=== PATIENT | male | born 1990 | race Caucasian/White ===

== ENCOUNTER 2016-11-18 10:48 | Inpatient (IN) | payer BC ==
[2016-11-18] MEDS ORDERED: ACETAMINOPHEN TAB 325 MG TAB PO STA (11:09)
--- NOTE | 2016-11-18 11:31 | ED ---
General Adult HPI - General Chief complaint: Fever Stated complaint: chest and back pain Time Seen by Provider: 11/18/16 11:01 Source: patient Mode of arrival: ambulatory Limitations: no limitations - History of Present Illness Initial comments: 46-year-old male presented for evaluation of one week of chest discomfort with sinus congestion, productive cough, shortness of breath, generalized myalgias, and rhinorrhea. He states he symptoms have progressively been worsening and he feels that he has also had a fever during this time although his temperature has been normal. He is a smoker and states that he got his influenza vaccine earlier this year. He denies abdominal pain, nausea, vomiting, lightheadedness, neck rigidity. - Related Data Home Medications Medication Instructions Recorded Confirmed Acetaminophen/Diphenhydramine 2 tab PO HS PRN 11/18/16 11/18/16 [Tylenol PM 500-25mg] Ibuprofen [Advil] 400 mg PO Q6HR PRN 11/18/16 11/18/16 Loratadine [Claritin] 10 mg PO DAILY PRN 11/18/16 11/18/16 Multivitamin [Men's Multi-Vitamin] 1 tab PO DAILY 11/18/16 11/18/16 Vitamin C Chewable 1 tab PO DAILY 11/18/16 11/18/16 guaiFENesin SYRUP 100MG/5ML 400 mg PO BID PRN 11/18/16 11/18/16 [Robitussin] Allergies Allergy/AdvReac Type Severity Reaction Status Date / Time No Known Allergies Allergy Verified 11/18/16 12:49 Review of Systems ROS Statement: Those systems with pertinent positive or pertinent negative responses have been documented in the HPI. ROS Other: All systems not noted in ROS Statement are negative. Constitutional: Reports: fever, chills. Denies: weakness, weight change Eyes: Denies: eye pain, eye discharge ENT: Denies: ear pain, throat pain Respiratory: Reports: cough, dyspnea. Denies: wheezes, hemoptysis, stridor Cardiovascular: Reports: chest pain. Denies: palpitations, dyspnea on exertion , orthopnea Endocrine: Reports: fatigue. Denies: polydipsia, polyuria Gastrointestinal: Denies: abdominal pain, nausea, vomiting, diarrhea, constipation, hematemesis, melena Genitourinary: Denies: urgency, dysuria Musculoskeletal: Reports: myalgia. Denies: back pain Skin: Denies: rash, lesions Neurological: Denies: headache, weakness Psychiatric: Denies: anxiety, depression Past Medical History Past Medical History: Pneumonia History of Any Multi-Drug Resistant Organisms: None Reported Additional Past Surgical History / Comment(s): wisdom teeth, lasix eye surgery Past Psychological History: No Psychological Hx Reported Smoking Status: Current every day smoker Past Alcohol Use History: Occasional Past Drug Use History: None Reported - Past Family History Mother Family Medical History: Coronary Artery Disease (CAD) (Mother is 54-year-old has history of CAD as well as hypothyroidism.), Thyroid Disorder Father Family Medical History: Hyperlipidemia, Hypertension (Father is 66-year-old has history of hypertension hyperlipidemia.) Sister(s) Family Medical History: No Reported History (Patient has one stepsister no major medical problems.) General Exam Limitations: no limitations General appearance: alert, in no apparent distress Head exam: Present: atraumatic, normocephalic, normal inspection Eye exam: Present: normal appearance, PERRL, EOMI. Absent: scleral icterus, conjunctival injection, periorbital swelling ENT exam: Present: normal exam, mucous membranes moist Neck exam: Present: normal inspection. Absent: tenderness, meningismus, lymphadenopathy Respiratory exam: Present: normal lung sounds bilaterally. Absent: respiratory distress, wheezes, rales, rhonchi, stridor Cardiovascular Exam: Present: regular rate, normal rhythm, normal heart sounds. Absent: systolic murmur, diastolic murmur, rubs, gallop, clicks GI/Abdominal exam: Present: soft, normal bowel sounds. Absent: distended, tenderness, guarding, rebound, rigid Rectal exam: Present: deferred Extremities exam: Present: normal inspection, full ROM, normal capillary refill. Absent: tenderness, pedal edema, joint swelling, calf tenderness Back exam: Present: full ROM, tenderness Neurological exam: Present: alert, oriented X3, CN II-XII intact Psychiatric exam: Present: normal affect, normal mood Skin exam: Present: warm, dry, intact, normal color. Absent: rash Course Vital Signs 11/18/16 11/18/16 11/18/16 10:56 11:50 12:16 Temperature 100.8 F H 101.9 F H 98.9 F Pulse Rate 79 80 86 Respiratory 20 16 20 Rate Blood Pressure 107/67 130/70 121/66 O2 Sat by Pulse 99 99 98 Oximetry 11/18/16 11/18/16 11/18/16 13:00 13:25 14:30 Temperature 98.7 F 100.4 F H Pulse Rate 80 85 79 Respiratory 18 18 20 Rate Blood Pressure 118/59 120/58 113/63 O2 Sat by Pulse 97 97 96 Oximetry EKG Findings - EKG Comments: EKG Findings:: EKG shows normal sinus rhythm and is being read as an acute LA/ STEMI in the anterior lateral leads. However there is ST segment abnormalities throughout the EKG that is more indicative of pericarditis. There are no reciprocal changes and there are intermittent DE depressions. Ventricular rate 75, ADAN 126, QRS 72, and QT/QTC 322/359. A second EKG was obtained as there were no previous ones to compare with and this showed findings consistent with the first. Medical Decision Making - Medical Decision Making 26-year-old male presented for evaluation of one week of substernal chest discomfort with sinus congestion, productive cough of brownish colored sputum, shortness of breath, and generalized myalgias. He is a smoker and had his influenza shot this year. On physical examination the patient has clear lung sounds bilaterally, mucous members are moist without erythema or swelling, and heart rate is regular rhythm and rate without murmurs rubs or gallops. Given his HPI concern for pneumonia versus URI is highest on differential although there is a family history of cardiac disease. We'll obtain an EKG, chest x-ray. We'll not obtain influenza swab as he is outside the treatment range for Tamiflu and family agreed with plan to forego swab testing. EKG showing diffuse ST elevation throughout without reciprocal ST depression. There is also intermittent DE depression. Although the EKG is being read as an acute LA/STEMI this appears to be more consistent with a pericarditis. This case was discussed with Dr. Diggs and EKGs were sent over for him to evaluate. He called back and stated that it looked like early repolarization but that he should be treated for pericarditis at this time with 400 mg Motrin TID and to admit for observation and an Echo in the am. Labs were significant for a troponin of 6.76 and a CRP of 137. Dr. Diggs was updated on this troponin value and stated he would come to the bedside immediately to further evaluate the pt as myocarditis and STEMI being considered. Upon discussion with the patient and family it was decided that he would be sent to the [facility] for further evaluation. The patient and his family acknowledged an understanding of all information provided and agreed with this plan of care. He remained stable for the remainder of his stay in the ED until he was transferred up to the label fuser tender. Troponin prior to leaving the department was 16. - Lab Data Result diagrams: 11/18/16 11:50 11/18/16 11:50 Lab Results 11/18/16 11/18/16 11/18/16 Range/Units 11:50 11:50 11:50 WBC 8.2 (3.8-10.6) k/uL RBC 4.68 (4.30-5.90) m/uL Hgb 14.7 (13.0-17.5) gm/dL Hct 41.5 (39.0-53.0) % MCV 88.6 (80.0-100.0) fL MCH 31.3 (25.0-35.0) pg MCHC 35.3 (31.0-37.0) g/dL RDW 12.7 (11.5-15.5) % Plt Count 155 (150-450) k/uL Neutrophils % 79 % Lymphocytes % 10 % Monocytes % 8 % Eosinophils % 1 % Basophils % 1 % Neutrophils # 6.4 (1.3-7.7) k/uL Lymphocytes # 0.8 L (1.0-4.8) k/uL Monocytes # 0.6 (0-1.0) k/uL Eosinophils # 0.1 (0-0.7) k/uL Basophils # 0.0 (0-0.2) k/uL ESR 19 H (0-15) mm/hr Sodium 138 (137-145) mmol/L Potassium 4.4 (3.5-5.1) mmol/L Chloride 101 (98-107) mmol/L Carbon Dioxide 25 (22-30) mmol/L Anion Gap 12 mmol/L BUN 12 (9-20) mg/dL Creatinine 0.90 (0.66-1.25) mg/dL Est GFR (MDRD) Af Amer >60 (>60 ml/min/1.73 sqM) Est GFR (MDRD) Non-Af >60 (>60 ml/min/1.73 sqM) Glucose 115 H (74-99) mg/dL Plasma Lactic Acid Beni 1.0 (0.7-2.0) mmol/L Uric Acid (3.5-8.5) mg/dL Calcium 9.0 (8.4-10.2) mg/dL Total Bilirubin 1.0 (0.2-1.3) mg/dL AST 47 (17-59) U/L ALT 32 (21-72) U/L Alkaline Phosphatase 77 (38-126) U/L Lactate Dehydrogenase (313-618) U/L Troponin I (0.000-0.034) ng/mL C-Reactive Protein 137.0 H (<10.0) mg/L NT-Pro-B Natriuret Pep pg/mL Total Protein 7.0 (6.3-8.2) g/dL Albumin 4.0 (3.5-5.0) g/dL Rheumatoid Factor (<12) IU/mL Hepatitis A IgM Ab Hep Bs Antigen Hep B Core IgM Ab Hep C IgG Ab (Negative) Influenza Type A RNA (Not Detectd) Influenza Type B (PCR) (Not Detectd) 11/18/16 11/18/16 11/18/16 Range/Units 11:50 11:50 11:50 WBC (3.8-10.6) k/uL RBC (4.30-5.90) m/uL Hgb (13.0-17.5) gm/dL Hct (39.0-53.0) % MCV (80.0-100.0) fL MCH (25.0-35.0) pg MCHC (31.0-37.0) g/dL RDW (11.5-15.5) % Plt Count (150-450) k/uL Neutrophils % % Lymphocytes % % Monocytes % % Eosinophils % % Basophils % % Neutrophils # (1.3-7.7) k/uL Lymphocytes # (1.0-4.8) k/uL Monocytes # (0-1.0) k/uL Eosinophils # (0-0.7) k/uL Basophils # (0-0.2) k/uL ESR (0-15) mm/hr Sodium (137-145) mmol/L Potassium (3.5-5.1) mmol/L Chloride (98-107) mmol/L Carbon Dioxide (22-30) mmol/L Anion Gap mmol/L BUN (9-20) mg/dL Creatinine (0.66-1.25) mg/dL Est GFR (MDRD) Af Amer (>60 ml/min/1.73 sqM) Est GFR (MDRD) Non-Af (>60 ml/min/1.73 sqM) Glucose (74-99) mg/dL Plasma Lactic Acid Beni (0.7-2.0) mmol/L Uric Acid 5.0 (3.5-8.5) mg/dL Calcium (8.4-10.2) mg/dL Total Bilirubin (0.2-1.3) mg/dL AST (17-59) U/L ALT (21-72) U/L Alkaline Phosphatase (38-126) U/L Lactate Dehydrogenase 620 H (313-618) U/L Troponin I 6.760 H* (0.000-0.034) ng/mL C-Reactive Protein (<10.0) mg/L NT-Pro-B Natriuret Pep 185 pg/mL Total Protein (6.3-8.2) g/dL Albumin (3.5-5.0) g/dL Rheumatoid Factor <9 (<12) IU/mL Hepatitis A IgM Ab NEGATIVE Hep Bs Antigen Negative Hep B Core IgM Ab NEGATIVE Hep C IgG Ab Negative (Negative) Influenza Type A RNA (Not Detectd) Influenza Type B (PCR) (Not Detectd) 11/18/16 Range/Units 12:10 WBC (3.8-10.6) k/uL RBC (4.30-5.90) m/uL Hgb (13.0-17.5) gm/dL Hct (39.0-53.0) % MCV (80.0-100.0) fL MCH (25.0-35.0) pg MCHC (31.0-37.0) g/dL RDW (11.5-15.5) % Plt Count (150-450) k/uL Neutrophils % % Lymphocytes % % Monocytes % % Eosinophils % % Basophils % % Neutrophils # (1.3-7.7) k/uL Lymphocytes # (1.0-4.8) k/uL Monocytes # (0-1.0) k/uL Eosinophils # (0-0.7) k/uL Basophils # (0-0.2) k/uL ESR (0-15) mm/hr Sodium (137-145) mmol/L Potassium (3.5-5.1) mmol/L Chloride (98-107) mmol/L Carbon Dioxide (22-30) mmol/L Anion Gap mmol/L BUN (9-20) mg/dL Creatinine (0.66-1.25) mg/dL Est GFR (MDRD) Af Amer (>60 ml/min/1.73 sqM) Est GFR (MDRD) Non-Af (>60 ml/min/1.73 sqM) Glucose (74-99) mg/dL Plasma Lactic Acid Beni (0.7-2.0) mmol/L Uric Acid (3.5-8.5) mg/dL Calcium (8.4-10.2) mg/dL Total Bilirubin (0.2-1.3) mg/dL AST (17-59) U/L ALT (21-72) U/L Alkaline Phosphatase (38-126) U/L Lactate Dehydrogenase (313-618) U/L Troponin I (0.000-0.034) ng/mL C-Reactive Protein (<10.0) mg/L NT-Pro-B Natriuret Pep pg/mL Total Protein (6.3-8.2) g/dL Albumin (3.5-5.0) g/dL Rheumatoid Factor (<12) IU/mL Hepatitis A IgM Ab Hep Bs Antigen Hep B Core IgM Ab Hep C IgG Ab (Negative) Influenza Type A RNA Not Detected (Not Detectd) Influenza Type B (PCR) Not Detected (Not Detectd) Disposition Clinical Impression: Myocarditis, Community acquired pneumonia Disposition: ADMITTED IP TO THIS [facility] Condition: Stable Decision to Admit Reason: Admit from EC Decision Date: 11/18/16 Decision Time: 13:42
[2016-11-18] MEDS ORDERED: SODIUM CHLORIDE 0.9% 1,000 ML IV ONE (12:07)
[2016-11-18] MEDS ORDERED: IBUPROFEN 400 MG TAB PO STA (12:08)
[2016-11-18 12:22] LABS: Basophils % (A) 1 %; CH 32.4; CHCM 36.7; Eosinophils # (A) 0.1 k/uL (0-0.7); Eosinophils % (A) 1 %; HCT 41.5 % (39.0-53.0); HDW 2.73; HGB 14.7 gm/dL (13.0-17.5); Luc % (Auto) 3; Lymphocytes # (A) 0.8 k/uL (1.0-4.8); Lymphocytes % (A) 10 %; MCH 31.3 pg (25.0-35.0); MCHC 35.3 g/dL (31.0-37.0); MCV 88.6 fL (80.0-100.0); Mean Platelet Volume 7.1; Monocytes # (A) 0.6 k/uL (0-1.0); Monocytes % (A) 8 %; Neutrophils # (A) 6.4 k/uL (1.3-7.7); Neutrophils % (A) 79 %; RBC 4.68 m/uL (4.30-5.90); RDW 12.7 % (11.5-15.5); WBC 8.2 k/uL (3.8-10.6)
[2016-11-18 12:35] LABS: ALT 32 U/L (21-72); AST 47 U/L (17-59); Alkaline Phosphatase 77 U/L (38-126); Anion Gap 12 mmol/L; Blood Urea Nitrogen 12 mg/dL (9-20); Carbon Dioxide 25 mmol/L (22-30); Chloride 101 mmol/L (98-107); Glucose 115 mg/dL (74-99); Non-African American GFR(MDRD) >60 (>60 ml/min/1.73 sqM); Potassium 4.4 mmol/L (3.5-5.1); Sodium 138 mmol/L (137-145)
--- NOTE | 2016-11-18 12:45 | XR ---
EXAMINATION TYPE: XR chest 2V DATE OF EXAM: 11/18/2016 12:26 PM COMPARISON: NONE HISTORY: Cough and chest pain TECHNIQUE: Frontal and lateral views of the chest are obtained. FINDINGS: There is a patchy airspace consolidation in the lateral right upper lobe. The other lung f ields are clear. Heart and mediastinum are normal. There is no pleural effusion. There are no hilar m asses. There are chest leads. Bony thorax is intact. IMPRESSION: Right upper lobe pneumonia.
[2016-11-18 13:11] LABS: Erythrocyte Sedimentation Rate 19 mm/hr (0-15)
[2016-11-18] MEDS ORDERED: AZITHROMYCIN 500 MG in SODIUM CHLORIDE 0.9% 250 ML IVPB STA (13:15)
[2016-11-18] MEDS ORDERED: SODIUM CHLORIDE 0.9% 1,000 ML IV SCH (13:32)
[2016-11-18] MEDS ORDERED: SODIUM CHLORIDE 0.9% 1,000 ML IV STA (13:38)
[2016-11-18] MEDS ORDERED: ONDANSETRON 4 MG/2 ML VIAL IVP PRN (14:17)
[2016-11-18] MEDS ORDERED: NALOXONE 0.4 MG/ML 1 ML VIAL IV PRN (14:17)
[2016-11-18] MEDS ORDERED: MORPHINE SULFATE 4 MG/ML SYRINGE IV PRN (14:17)
--- NOTE | 2016-11-18 14:50 | CONS ---
DATE OF CONSULTATION: Mr. Ponce is a 26-year-old gentleman who is seen for cardiac evaluation. Patient's emergency room records reviewed. This patient has been having symptoms of cough and congestion for the last one week. He had been having some chills and a fever. This morning patient started having some substernal chest pain. Patient denies any significant shortness of breath. Initial EKG showed evidence of J-point elevation suggestive of early repolarization. No definitive AK segment depression was noted. Patient is comfortable at present, his chest pain has subsided. A repeat EKG shows a J-point elevation. His chest x-ray is suggestive right upper lobe infiltrate. His white count is normal. The patient's troponin came back as a 6. It could be suggestive of myopericarditis. Discussed in detail with the patient as well as patient's mother. In view of the significantly elevated troponin, we will recommend a cardiac catheterization for definitive diagnosis to rule out any possibility of any cardiac ischemic syndrome. Patient does have a family history of coronary artery disease. PAST MEDICAL HISTORY: No history of any major surgeries. Review of systems is unremarkable. SOCIAL HISTORY: Patient denies any history of drug physical examination at present reveals a 26-year-old gentleman who at present does not appear to be in any acute distress. Patient's blood pressure is 120/80 mmHg. Patient's temperature is 99. HEENT examination is negative. Neck is supple. There is no increase in jugular venous pressure. Both the carotid pulses are felt. There is no bruit. Chest is symmetrical. HEART: The PMI is not felt. First and second heart sounds are normal. There is no evidence of any murmur. Lungs are clinically clear to auscultation and percussion. Abdomen is soft. EXTREMITIES: Peripheral pulsations are 2+. FINAL IMPRESSION: This patient has been having symptoms suggestive of acute bronchitis or viral infection. His white count is normal; however, and CRP is elevated. Patient's chest x-ray shows right upper lobe infiltrate suggestive for pneumonia. Patient's has significant J-point elevation, which is suggestive for repolarization. No definite evidence of AK segment elevation or depression is noted. This could be secondary to viral myopericarditis; however, in view of the significantly elevated troponin, I will recommend a cardiac catheterization for definitive diagnosis. We will obtain urine for drug screen. Patient's BNP level is 185.
[2016-11-18] MEDS ORDERED: MIDAZOLAM 2 MG/2 ML VIAL ONE (14:59)
[2016-11-18] MEDS ORDERED: fentaNYL (PF) 50 MCG/ML 2 ML AMP ONE (15:00)
[2016-11-18] MEDS ORDERED: ASPIRIN 325 MG TAB ONE (15:08)
[2016-11-18] MEDS ORDERED: IV FLUID CONTINUATION 1,000 ML IV ONE ×2 (15:10)
[2016-11-18] MEDS ORDERED: ASPIRIN 325 MG TAB PO ONE (15:15)
[2016-11-18] MEDS ORDERED: MIDAZOLAM 2 MG/2 ML VIAL IVP ONE (15:18)
[2016-11-18] MEDS ORDERED: fentaNYL (PF) 50 MCG/ML 2 ML AMP IV ONE (15:18)
[2016-11-18] MEDS ORDERED: LIDOCAINE 2% INJ 20 MG/ML SQ ONE (15:22)
[2016-11-18] MEDS ORDERED: IOHEXOL 350 MG/ML 100 ML BOTTLE INJ ONE (15:35)
[2016-11-18] MEDS ORDERED: IBUPROFEN 400 MG TAB PO SCH (16:00)
[2016-11-18 16:18] VITALS: BMI 23.2
--- NOTE | 2016-11-18 16:26 | CC ---
DATE OF SERVICE: Mr. Ponce is a 26-year-old gentleman who came to the hospital with the complaint of chest pain. Patient has a history of fever and chills. Patient's EKG showed J-point elevation suggestive of early repolarization pattern. White count was normal. Troponin was 6 raising the possibility of myopericarditis. In view of the significantly elevated troponin, patient was recommended to have a cardiac catheterization for definitive diagnosis. PROCEDURE: Right groin was prepped and draped in the use of manner and the skin was infiltrated with 2% Xylocaine. The right femoral artery was entered using Seldinger technique. A #6 Azeri sheath was placed in. Selective coronary angiography was then performed in multiple projections and left ventriculography was performed in right anterior oblique projection. Patient tolerated the procedure well. Sheath was removed and good hemostasis was achieved with the use of Angio-Seal. HEMODYNAMICS: Left ventricular end-diastolic pressure was 24 mmHg prior to angiography. No gradient was noted across the aortic valve. SELECTIVE CORONARY ANGIOGRAPHY: LEFT MAIN: Left main coronary artery is normal and patent. LEFT ANTERIOR DESCENDING CORONARY ARTERY: LAD is a good caliber blood vessel and gives to a good-sized diagonal branch. LAD and its branches are normal. CIRCUMFLEX CORONARY ARTERY: Circumflex coronary artery is normal. RIGHT CORONARY ARTERY: Right coronary artery is normal. LEFT VENTRICULOGRAM: Left ventriculography reveals overall ejection fraction of 50%. FINAL IMPRESSION: This study reveals normal coronary arteries and left ventricular end-diastolic pressure is elevated. Left ventricular systolic function by left ventriculography reveals ejection fraction in the range of 50%. RECOMMENDATIONS: Medical treatment.
[2016-11-18] MEDS: SODIUM CHLORIDE 0.9% 1,000 ML IV SCH (16:27)
--- NOTE | 2016-11-18 16:40 | P.HPIM ---
History of Present Illness H&P Date: 11/18/16 Chief Complaint: Chest pain/elevated troponin/myocarditis This is a 26-year-old male one of the [employer] with no prior medical history who developed to have an upper respiratory tract infection about a week ago with sinus pressure associated with postnasal drip, fever, chills, coughing, increased congestion, patient has been having these symptoms for quite some time, and he was working extra hard over the weekend carrying at least 75 pounds on his back where he felt extreme short of breath and somewhat heavy in his chest. Today in the morning when the patient woke up he developed to have a severe chest pressure at the center of the chest radiating to the back and to the neck associated with increased shortness of breath and the patient could not even put his clothes on he ended up coming to the emergency department at [facility] with his mom where he was seen in the ER and he had an EKG that showed normal sinus rhythm with J-point elevation suggestive of possible pericarditis however there was no evidence of any short or depressed IN and the patient troponin surprisingly came back positive at 6, patient then was taken immediately to the cath lab radiological technologist with the Dr. Diggs and came back negative for coronary artery disease, echogram still pending at the time of dictation, the working diagnosis will be acute myocarditis. Review of Systems Constitutional: Reports fatigue, Reports lethargy, Reports malaise, Denies anorexia, Denies chronic headaches, Denies chronic pain, Denies weight gain, Denies weight loss Eyes: denies blurred vision, denies bulging eye, denies decreased vision, denies diplopia Ears: deny: decreased hearing Ears, nose, mouth and throat: Reports vertigo, Denies dysphagia, Denies neck lump, Denies sore throat, Denies voice changes Cardiovascular: Reports chest pain, Reports decreased exercise tolerance, Reports dyspnea on exertion, Reports shortness of breath, Denies high blood pressure, Denies irregular heart beat, Denies phlebitis, Denies rapid heart beat , Denies syncope Respiratory: Reports cough with sputum, Denies congestion, Denies dyspnea, Denies hemoptysis, Denies pain, Denies pain on inspiration, Denies sleep apnea, Denies snoring, Denies wheezing Gastrointestinal: Denies abdominal pain, Denies bloating, Denies BRBPR, Denies change in bowel habits, Denies coffee ground emesis, Denies heartburn, Denies hematemesis, Denies hematochezia, Denies indigestion, Denies nausea, Denies vomiting Genitourinary: Denies dysuria, Denies erectile dysfunction, Denies kidney stones , Denies nocturia, Denies polyuria Musculoskeletal: Denies myalgias Musculoskeletal: absent: ankle pain, ankle stiffness, ankle swelling, elbow pain , elbow stiffness, elbow swelling, foot pain, foot stiffness, foot swelling, hand pain, hand stiffness, hand swelling, hip pain, hip stiffness, hip swelling , knee pain, knee stiffness, knee swelling, shoulder pain, shoulder stiffness, shoulder swelling, wrist pain, wrist stiffness, wrist swelling Integumentary: Denies pruritus, Denies rash Neurological: Denies numbness, Denies weakness Psychiatric: Denies anxiety, Denies depression Endocrine: Denies fatigue, Denies weight change Past Medical History Past Medical History: Pneumonia History of Any Multi-Drug Resistant Organisms: None Reported Additional Past Surgical History / Comment(s): wisdom teeth, lasix eye surgery Past Psychological History: No Psychological Hx Reported Smoking Status: Current every day smoker (Patient smokes cigars on a daily basis , he works for the [employer], he has no other exposure.) Past Alcohol Use History: Occasional Additional Past Alcohol Use History / Comment(s): Cigars Past Drug Use History: None Reported - Past Family History Mother Family Medical History: Coronary Artery Disease (CAD) (Mother is 54-year-old has history of CAD as well as hypothyroidism.), Thyroid Disorder Father Family Medical History: Hyperlipidemia, Hypertension (Father is 66-year-old has history of hypertension hyperlipidemia.) Sister(s) Family Medical History: No Reported History (Patient has one stepsister no major medical problems.) Medications and Allergies Home Medications Medication Instructions Recorded Confirmed Type Acetaminophen/Diphenhydramine 2 tab PO HS PRN 11/18/16 11/18/16 History [Tylenol PM 500-25mg] Ibuprofen [Advil] 400 mg PO Q6HR PRN 11/18/16 11/18/16 History Loratadine [Claritin] 10 mg PO DAILY PRN 11/18/16 11/18/16 History Multivitamin [Men's Multi-Vitamin] 1 tab PO DAILY 11/18/16 11/18/16 History Vitamin C Chewable 1 tab PO DAILY 11/18/16 11/18/16 History guaiFENesin SYRUP 100MG/5ML 400 mg PO BID PRN 11/18/16 11/18/16 History [Robitussin] Allergies Allergy/AdvReac Type Severity Reaction Status Date / Time No Known Allergies Allergy Verified 11/18/16 12:49 Physical Exam Vitals: Vital Signs Temp Pulse Resp BP Pulse Ox 11/18/16 14:30 100.4 F H 79 20 113/63 96 Intake and Output 11/18/16 11/18/16 11/18/16 06:59 14:59 22:59 Intake Total 250 Balance 250 Intake: IV 250 Other: Weight 75.5 kg Patient Weight 11/19/16 06:59 Weight 75.5 kg - Constitutional General appearance: average body habitus, no acute distress - EENT Eyes: anicteric sclerae, EOMI, PERRLA, no ptosis, normal appearance ENT: hearing grossly normal, normal oropharynx, no thrush, no tonsillar exudates Ears: bilateral: normal - Neck Neck: no lymphadenopathy, normal ROM, no rigidity, no stridor Carotids: bilateral: upstroke normal Thyroid: bilateral: normal size - Respiratory Respiratory: bilateral: CTA, negative: diminished, dullness, rales, rhonchi, wheezing, prolonged expiration - Cardiovascular Rhythm: regular Heart sounds: normal: S1, S2 Abnormal Heart Sounds: no systolic murmur, no diastolic murmur, no rub, no S3 Gallop, no S4 Gallop, no click - Gastrointestinal General gastrointestinal: normal bowel sounds, soft, no splenomegaly, no tenderness, no umbilical hernia, no ventral hernia - Integumentary Integumentary: normal, normal turgor - Musculoskeletal Musculoskeletal: strength equal bilaterally - Psychiatric Psychiatric: A&O x's 3, appropriate affect, intact judgment & insight Results CBC & Chem 7: 11/18/16 11:50 11/18/16 11:50 Labs: Abnormal Lab Results - Last 24 Hours (Table) 11/18/16 Range/Units 14:28 Troponin I 16.300 H* (0.000-0.034) ng/mL Thrombosis Risk Factor Assmnt - DVT/VTE Prophylaxis DVT/VTE Prophylaxis: Low risk, early ambulation encouraged - Choose All That Apply Any of the Below Risk Factors Present?: Yes Other Risk Factors: No Assessment and Plan Plan: Assessment and plan: 1. Acute myocarditis the exact etiology is unclear, patient is post left heart catheterization that was normal, echocardiogram still pending at the time of dictation for evaluation of LV function, we will obtain anti-nuclear antibody, rheumatoid factor, coxsackie a and B virus antibodies IgG and IgM,Hepatitis panel,Lyme titers,along with Adenovirus,Enterovirus antibodies ,infectious disease consultation will be obtained. 2. Right upper lobe pneumonia.will check Mycoplasma antibodies IGM,IGG. 3. Tobacco use. Smoking cessation and counseling. 4. Recent upper respiratory tract infection. Appears to be better at this time. Continue supportive care. 5. Patient is full code. 6. We will continue to monitor.
[2016-11-18 17:39] LABS: LDH 620 U/L (313-618)
[2016-11-18 18:09] LABS: Hepatitis B Surface Ag Index 0.09
[2016-11-18 18:15] LABS: Hepatitis B Core IgM Index 0.04
[2016-11-18 18:27] LABS: Hepatitis C Virus IgG Index 0.03
--- NOTE | 2016-11-18 18:27 | P.CONS ---
History of Present Illness - Reason for Consult Consult date: 11/18/16 - Chief Complaint Respiratory symptoms with shortness of breath and chest pain - History of Present Illness Very pleasant 26-year-old male who is very physically fit due to his ongoing activity with the [employer]. He has been actively involved in duties as of late. Running 6 miles in a day. He's had some extensive training exercises. He had difficulty with lack of sleep several days in a row. He was working out into the rain. He was feeling quite fatigued. In the few days before coming to Hospital he was noticing that he was very exhausted when he would sit down he would fall asleep. He was also having some nasal congestion and some loose cough. Did not believe he had a high-grade fever. He was not having chills or rigors. He had not noticed any new rashes. The patient then developed evidence of significant chest pain. It was for a pressure-like in nature. It was to the left side of his chest. He had radiation down his arms. It radiated to his back. Because of this he presented to the emergency center. Workup showed evidence of a markedly abnormal EKG as well as an elevated troponin. The patient was seen by cardiology and has been taken to the cardiac catheterization lab with evidence of normal coronary arteries. Ejection fraction was approximately 50%. Echocardiogram reading is in process. The patient is directly status post cardiac catheterization and is feeling somewhat better. He did receive sedation. He relates his chest pain is improved. He has no other new complaints at this time. He denies any recent or antecedent sore throat. Travels of only been within [place]. 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 Family members are not ill. Review of Systems Please see the HPI HEENT:Denies headache or acute visual change. Denies sinus or mouth discomforts. Denies neck stiffness or pain. Denies significant oral cavity pain. Denies difficulty on swallowing. Lungs: Denies significant shortness of breath, minimal cough loose phlegm but no significant hemoptysis Cardiovascular: At admission was having significant chest pain left anterior chest wall as noted per the HPI assist with shortness of breath but no syncope Gastrointestinal:Denies nausea, vomiting, diarrhea, constipation, hematemesis, melena, hematochezia. No no significant change of bowel habit noticed. Musculoskeletal: denies significant myalgias or arthralgias. No new joint swelling. Denies new back pain. Skin: Denies new rash or lesions. No new ulcers or wounds are related.. Neuro: Denies headache or visual change. Denies any new onset weakness or difficulty with ambulation. Denies falls or seizures. Psychiatric:Denies anxiety or depression. Endocrine: In the days before admission he had profound fatigue but no weight loss Past Medical History Past Medical History: Pneumonia History of Any Multi-Drug Resistant Organisms: None Reported Additional Past Surgical History / Comment(s): wisdom teeth, lasix eye surgery Past Psychological History: No Psychological Hx Reported Additional Psychological History / Comment(s): Single. College student and works the [employer]. Travel within [place]. No animal exposures. No tobacco use. No alcohol or recreational drug use. No international travel Smoking Status: Current every day smoker (Patient smokes cigars on a daily basis , he works for the [employer], he has no other exposure.) Past Alcohol Use History: Occasional Additional Past Alcohol Use History / Comment(s): Cigars Past Drug Use History: None Reported - Past Family History Mother Family Medical History: Coronary Artery Disease (CAD) (Mother is 54-year-old has history of CAD as well as hypothyroidism.), Thyroid Disorder Father Family Medical History: Hyperlipidemia, Hypertension (Father is 66-year-old has history of hypertension hyperlipidemia.) Sister(s) Family Medical History: No Reported History (Patient has one stepsister no major medical problems.) Medications and Allergies Home Medications and Allergies Comment(s): Current Medications Acetaminophen (Tylenol Tab) 650 mg PO Q6HR PRN PRN Reason: Mild Pain or Fever > 100.5 Azithromycin (Zithromax) 500 mg PO DAILY [facility] Sodium Chloride (Saline 0.9%) 1,000 mls @ 75 mls/hr IV .[id number] [facility] Last Admin: 11/18/16 16:27 Dose: 75 mls/hr Morphine Sulfate (Morphine Sulfate (Inj)) 4 mg IV Q4HR PRN PRN Reason: Severe Pain Naloxone HCl (Narcan) 0.2 mg IV Q2M PRN PRN Reason: Opioid Reversal Ondansetron HCl (Zofran) 4 mg IVP Q8HR PRN PRN Reason: Nausea And Vomiting Home Medications Medication Instructions Recorded Confirmed Type Acetaminophen/Diphenhydramine 2 tab PO HS PRN 11/18/16 11/18/16 History [Tylenol PM 500-25mg] Ibuprofen [Advil] 400 mg PO Q6HR PRN 11/18/16 11/18/16 History Loratadine [Claritin] 10 mg PO DAILY PRN 11/18/16 11/18/16 History Multivitamin [Men's Multi-Vitamin] 1 tab PO DAILY 11/18/16 11/18/16 History Vitamin C Chewable 1 tab PO DAILY 11/18/16 11/18/16 History guaiFENesin SYRUP 100MG/5ML 400 mg PO BID PRN 11/18/16 11/18/16 History [Robitussin] Allergies Allergy/AdvReac Type Severity Reaction Status Date / Time No Known Allergies Allergy Verified 11/18/16 12:49 Physical Exam Vitals: Vital Signs Temp Pulse Pulse Resp BP BP Pulse Ox 11/18/16 17:20 81 16 111/52 100 11/18/16 16:50 76 16 112/68 98 11/18/16 16:35 88 16 117/67 97 11/18/16 16:20 82 16 112/64 97 11/18/16 16:05 98.4 F 82 16 103/61 97 11/18/16 14:30 100.4 F H 79 20 113/63 96 Intake and Output 11/18/16 11/18/16 11/18/16 06:59 14:59 22:59 Intake Total 490 Balance 490 Intake: IV 250 Oral 240 Other: Weight 75.5 kg Patient Weight 11/19/16 06:59 Weight 75.5 kg Pleasant 26-year-old male who was of a tall muscular build. Is status post procedure and is in no acute distress. His chest pain is resolved at this time. HEENT: Anicteric conjunctiva are pink and moist nasal mucosa grossly intact without significant lesions, there is no thrush. Neck: The neck is supple without significant lymphadenopathy or thyromegaly. Lungs: Good bilateral air entry without significant crackles or wheezing. There is no significant bronchial sounds. There is no egophony or dullness. Heart: Regular rate and rhythm with an audible S1-S2, no S3 no S4. There is no significant murmur click or rub, PMI was nondisplaced. Abdomen: Positive bowel sounds soft and nontender without palpable masses or organomegaly. There was no guarding or rebound. Extremities: The upper extremities have excellent pulses they are symmetric, no significant petechiae or telangiectasia. No splinter hemorrhages were noted. The lower extremities are free from significant edema. The peripheral pulses were 2+ and symmetric. Neuro: Awake alert oriented to person place and time. There are no acute new gross focal sensory motor deficits. Skin there are no rashes petechiae telangiectasia or splinter hemorrhages. No lesions on the conjunctiva or oral cavity. No genital lesions were seen. No lymphadenopathy was noted cervical axillary or inguinal or epitrochlear this time Results CBC & Chem 7: 11/18/16 11:50 11/18/16 11:50 Labs: Abnormal Lab Results - Last 24 Hours (Table) 11/18/16 Range/Units 14:28 Troponin I 16.300 H* (0.000-0.034) ng/mL Laboratory Results WBC 8.2 k/uL (3.8-10.6) 11/18/16 11:50 RBC 4.68 m/uL (4.30-5.90) 11/18/16 11:50 Hgb 14.7 gm/dL (13.0-17.5) 11/18/16 11:50 Hct 41.5 % (39.0-53.0) 11/18/16 11:50 MCV 88.6 fL (80.0-100.0) 11/18/16 11:50 MCH 31.3 pg (25.0-35.0) 11/18/16 11:50 MCHC 35.3 g/dL (31.0-37.0) 11/18/16 11:50 RDW 12.7 % (11.5-15.5) 11/18/16 11:50 Plt Count 155 k/uL (150-450) 11/18/16 11:50 Neutrophils % 79 % 11/18/16 11:50 Lymphocytes % 10 % 11/18/16 11:50 Monocytes % 8 % 11/18/16 11:50 Eosinophils % 1 % 11/18/16 11:50 Basophils % 1 % 11/18/16 11:50 Neutrophils # 6.4 k/uL (1.3-7.7) 11/18/16 11:50 Lymphocytes # 0.8 k/uL (1.0-4.8) L 11/18/16 11:50 Monocytes # 0.6 k/uL (0-1.0) 11/18/16 11:50 Eosinophils # 0.1 k/uL (0-0.7) 11/18/16 11:50 Basophils # 0.0 k/uL (0-0.2) 11/18/16 11:50 ESR 19 mm/hr (0-15) H 11/18/16 11:50 Sodium 138 mmol/L (137-145) 11/18/16 11:50 Potassium 4.4 mmol/L (3.5-5.1) 11/18/16 11:50 Chloride 101 mmol/L (98-107) 11/18/16 11:50 Carbon Dioxide 25 mmol/L (22-30) 11/18/16 11:50 Anion Gap 12 mmol/L 11/18/16 11:50 BUN 12 mg/dL (9-20) 11/18/16 11:50 Creatinine 0.90 mg/dL (0.66-1.25) 11/18/16 11:50 Est GFR (MDRD) Af Amer >60 (>60 ml/min/1.73 sqM) 11/18/16 11:50 Est GFR (MDRD) Non-Af >60 (>60 ml/min/1.73 sqM) 11/18/16 11:50 Glucose 115 mg/dL (74-99) H 11/18/16 11:50 Plasma Lactic Acid Beni 1.0 mmol/L (0.7-2.0) 11/18/16 11:50 Calcium 9.0 mg/dL (8.4-10.2) 11/18/16 11:50 Total Bilirubin 1.0 mg/dL (0.2-1.3) 11/18/16 11:50 AST 47 U/L (17-59) 11/18/16 11:50 ALT 32 U/L (21-72) 11/18/16 11:50 Alkaline Phosphatase 77 U/L (38-126) 11/18/16 11:50 Troponin I 16.300 ng/mL (0.000-0.034) H* 11/18/16 14:28 C-Reactive Protein 137.0 mg/L (<10.0) H 11/18/16 11:50 NT-Pro-B Natriuret Pep 185 pg/mL 11/18/16 11:50 Total Protein 7.0 g/dL (6.3-8.2) 11/18/16 11:50 Albumin 4.0 g/dL (3.5-5.0) 11/18/16 11:50 Urine Opiates Screen Not Detected (NotDetected) 11/18/16 14:29 Ur Oxycodone Screen Not Detected (NotDetected) 11/18/16 14:29 Urine Methadone Screen Not Detected (NotDetected) 11/18/16 14:29 Ur Propoxyphene Screen Not Detected (NotDetected) 11/18/16 14:29 Ur Barbiturates Screen Not Detected (NotDetected) 11/18/16 14:29 U Tricyclic Antidepress Not Detected (NotDetected) 11/18/16 14:29 Ur Phencyclidine Scrn Not Detected (NotDetected) 11/18/16 14:29 Ur Amphetamines Screen Not Detected (NotDetected) 11/18/16 14:29 U Methamphetamines Scrn Not Detected (NotDetected) 11/18/16 14:29 U Benzodiazepines Scrn Not Detected (NotDetected) 11/18/16 14:29 Urine Cocaine Screen Not Detected (NotDetected) 11/18/16 14:29 U Marijuana (THC) Screen Not Detected (NotDetected) 11/18/16 14:29 Influenza Type A RNA Not Detected (Not Detectd) 11/18/16 12:10 Influenza Type B (PCR) Not Detected (Not Detectd) 11/18/16 12:10 Assessment and Plan (1) Myocarditis Narrative/Plan: Very pleasant 26-year-old male presents to the hospital with significant chest pain. The patient is currently involved with the [employer] maneuvers. Running 6 miles a day and is having some activities in [employer] with markedly reduction of his amount of sleep. He was feeling very fatigued. He then had the significant decline in status. He developed severe chest pain. Troponins were markedly elevated and is bending of the cardiac catheterization suite with no evidence of coronary disease. The patient has evidence of a myocarditis at this time. With this would limit anti-inflammatories and no steroid therapy at this time. He may have a mild pericarditis syndrome also occurring and colchicine can be added. Chest x-ray is abnormal with a right upper lobe infiltration. Concern would be to mycoplasma pneumonia and resultant myocarditis related to this. Although not common is been reported. There are multiple other causes of myocarditis included the viral pathogens and autoimmune disease. In these viral titers and serology test for autoimmune disease been requested. The patient is in the [employer] and has had HIV testing which was negative. Patient is feeling well this point in time and expect him to show ongoing improvement. Ejection fraction was adequate at 50%. Echocardiogram is pending. Status: Acute (2) Right upper lobe pneumonia Status: Acute
[2016-11-18 18:31] LABS: Hepatitis C Virus IgG Ab Negative (Negative)
[2016-11-18 18:44] LABS: Rheumatoid Factor, Qnt <9 IU/mL (<12)
[2016-11-18] MEDS: COLCHICINE 0.6 MG TAB PO SCH (20:12)
[2016-11-18 21:56] LABS: Creatine Kinase MB 20.8 ng/mL (0.0-2.4)
[2016-11-19] MEDS: ACETAMINOPHEN TAB 325 MG TAB PO PRN ×4 (04:02→21:02)
[2016-11-19] MEDS: SODIUM CHLORIDE 0.9% 1,000 ML IV SCH (05:51)
[2016-11-19 06:24] LABS: Basophils # (A) 0.1 k/uL (0-0.2); Basophils % (A) 1 %; CH 32.3; CHCM 36.5; Eosinophils # (A) 0.1 k/uL (0-0.7); Eosinophils % (A) 1 %; HCT 38.7 % (39.0-53.0); HDW 2.75; HGB 13.5 gm/dL (13.0-17.5); Luc # (Auto) 0.24; Luc % (Auto) 3; Lymphocytes # (A) 1.2 k/uL (1.0-4.8); Lymphocytes % (A) 16 %; MCHC 34.9 g/dL (31.0-37.0); Mean Platelet Volume 7.2; Monocytes # (A) 0.9 k/uL (0-1.0); Monocytes % (A) 11 %; Neutrophils # (A) 5.3 k/uL (1.3-7.7); Neutrophils % (A) 69 %; RBC 4.35 m/uL (4.30-5.90); RDW 12.8 % (11.5-15.5); WBC 7.7 k/uL (3.8-10.6); WBC (Perox) 8.38
[2016-11-19 06:40] LABS: Anion Gap 9 mmol/L; Blood Urea Nitrogen 10 mg/dL (9-20); Calcium 8.6 mg/dL (8.4-10.2); Carbon Dioxide 25 mmol/L (22-30); Chloride 101 mmol/L (98-107); Glucose 107 mg/dL (74-99); Magnesium 1.7 mg/dL (1.6-2.3); Non-African American GFR(MDRD) >60 (>60 ml/min/1.73 sqM); Phosphorous 3.2 mg/dL (2.5-4.5); Potassium 3.9 mmol/L (3.5-5.1); Sodium 135 mmol/L (137-145)
--- NOTE | 2016-11-19 07:24 | XR ---
EXAMINATION TYPE: XR chest 2V DATE OF EXAM: 11/19/2016 7:14 AM HISTORY: Pneumonia. REFERENCE: Previous study dated 11/18/2016. FINDINGS: The patient's right upper lobe infiltrate has become somewhat denser. The left lung is ever r. The heart is not enlarged. Pleural spaces are clear. IMPRESSION: SLIGHT WORSENING IN THE APPEARANCE OF THE PATIENT'S RIGHT UPPER LOBE INFILTRATE.
[2016-11-19] MEDS: COLCHICINE 0.6 MG TAB PO SCH ×2 (10:13→20:42)
[2016-11-19] MEDS: AZITHROMYCIN 500 MG TAB PO SCH (10:13)
--- NOTE | 2016-11-19 10:39 | ECHOF ---
Referral Reason:status post cardiac cath MEASUREMENTS -------- HEIGHT: 180.3 cm WEIGHT: 75.3 kg BP: 111/55 RVIDd: 2.6 cm (< 3.3) IVSd: 0.9 cm (0.6 - 1.1) LVIDd: 5.0 cm (3.9 - 5.3) LVPWd: 1.0 cm (0.6 - 1.1) IVSs: 1.2 cm LVIDs: 3.4 cm LVPWs: 1.5 cm LA Diam: 3.4 cm (2.7 - 3.8) Ao Diam: 3.2 cm (2.0 - 3.7) AV Cusp: 2.6 cm (1.5 - 2.6) MV EXCURSION: 31.887 mm (> 18.000) MV EF SLOPE: 256 mm/s (70 - 150) EPSS: 0.4 cm MV E Martinez: 1.01 m/s MV DecT: 207 ms MV A Martinez: 0.60 m/s MV E/A Ratio: 1.68 RAP: 5.00 mmHg RVSP: 20.86 mmHg FINDINGS -------- Sinus rhythm. This was a technically good study. The left ventricular size is normal. Left ventricular wall thickness is normal. Overall left ventricular systolic function is normal with, an EF between 60 - 65 %. The right ventricle is normal in size and function. The left atrial size is normal. The right atrium is normal in size. The aortic valve is trileaflet and appears structurally normal. The mitral valve is normal. There is trace mitral regurgitation. Trace tricuspid regurgitation present. Right ventricular systolic pressure is normal at < 35 mmHg. Trace/mild (physiologic) pulmonic regurgitation. The aortic root size is normal. Normal inferior vena cava with normal inspiratory collapse consistent with estimated right atrial pressure of 5 mmHg. There is no pericardial effusion. CONCLUSIONS -------- 1. Sinus rhythm. 2. Trace/mild (physiologic) pulmonic regurgitation. 3. The aortic root size is normal. 4. Normal inferior vena cava with normal inspiratory collapse consistent with estimated right atrial pressure of 5 mmHg. 5. There is no pericardial effusion. 6. This was a technically good study. 7. Left ventricular wall thickness is normal. 8. Overall left ventricular systolic function is normal with, an EF between 60 - 65 %. 9. The left atrial size is normal. 10. The aortic valve is trileaflet and appears structurally normal. 11. There is trace mitral regurgitation. 12. Trace tricuspid regurgitation present. 13. Right ventricular systolic pressure is normal at < 35 mmHg. MARKETING PROJECT LEAD: Selina Verdin RDCS
--- NOTE | 2016-11-19 12:33 | P.PN ---
Subjective Principal diagnosis: Chest pain This is a pleasant 26-year-old gentleman who was seen in consultation yesterday by Dr. VC Diggs. Patient had been having symptoms of cough and congestion for one week, associated fever and chills. He presented to the hospital yesterday with symptoms of chest pain. His initial EKG showed evidence of J-point elevation suggestive of early repolarization with no definite TN segment depression noted. Patient's chest pain had subsided. A repeat EKG showed J- point elevation. Chest x-ray revealed right upper lobe infiltrate. His initial troponin came back at 6 and for this reason patient was taken to the cardiac catheterization lab by Dr. VC florian oh. Patient was not found to have any significant obstructive coronary artery disease. Troponin this morning up to 16.3. White blood cell count remains normal. C-reactive protein 137, drug screen negative. Hepatitis panel negative. Rheumatoid factor negative influenza A and B-. Temperature this morning of 101.7, 100.7, and 100. Blood pressure 110/60 with a heart rate in the 90s. Patient was seen and examined this morning, he complains of feeling mildly achy, positive chills. Denies any chest pains. Echocardiogram with Doppler study was performed which revealed an ejection fraction of 60-65%. No evidence of pericardial effusion. Patient is currently on nonsteroidals, we will add Colchicine to his medication regime twice a day. I'll also check a sedimentation rate. Objective - Vital Signs Vital signs: Vital Signs Temp 100 F H 11/19/16 05:30 Pulse 96 11/19/16 04:00 Resp 18 11/19/16 04:00 BP 111/55 11/19/16 04:00 Pulse Ox 96 11/19/16 04:00 Intake & Output 11/18/16 11/19/16 11/19/16 18:59 06:59 18:59 Intake Total 715 1125 Output Total 600 Balance 115 1125 Weight 75.5 kg 75.3 kg Intake: IV 475 525 Sodium Chloride 0.9% 1, 225 525 000 ml @ 75 mls/hr IV . [id number] [facility] Rx#:[id number] Oral 240 600 Output: Urine 600 Other: Voiding Method Toilet # Voids 3 - Exam PHYSICAL EXAMINATION: HEENT: Head is atraumatic, normocephalic. Pupils equal, round. Neck is supple. There is no elevated jugular venous pressure. HEART EXAMINATION: S1 and S2 pericardial rub is heard. CHEST EXAMINATION: Lungs are clear to auscultation and precussion. No chest wall tenderness is noted on palpation or with deep breathing. ABDOMEN: Soft, nontender. Bowel sounds are heard. No organomegaly noted. EXTREMITIES: 2+ peripheral pulses with no evidence of peripheral edema and no calf tenderness noted. NEUROLOGIC patient is awake, alert and oriented -3. . - Labs CBC & Chem 7: 11/19/16 05:56 11/19/16 05:56 Labs: Abnormal Lab Results - Last 24 Hours (Table) 11/18/16 11/18/16 11/19/16 Range/Units 14:28 20:45 05:56 Hct 38.7 L (39.0-53.0) % Plt Count 144 L (150-450) k/uL Sodium (137-145) mmol/L Glucose (74-99) mg/dL Total Creatine Kinase 640 H (55-170) U/L CK-MB (CK-2) 20.8 H* (0.0-2.4) ng/mL Troponin I 16.300 H* (0.000-0.034) ng/mL 11/19/16 Range/Units 05:56 Hct (39.0-53.0) % Plt Count (150-450) k/uL Sodium 135 L (137-145) mmol/L Glucose 107 H (74-99) mg/dL Total Creatine Kinase (55-170) U/L CK-MB (CK-2) (0.0-2.4) ng/mL Troponin I (0.000-0.034) ng/mL Assessment and Plan (1) Acute myopericarditis Status: Acute (2) Fever Status: Acute (3) Right upper lobe pneumonia Status: Acute Plan: Cardiology's perspective, we'll increase the colchicine to 0.6 mg twice a day. We will also obtain a sedimentation rate. Continue to follow. DNP note has been reviewed, I agree with a documented findings and plan of care. Patient was seen and examined.
[2016-11-19 12:43] LABS: ANA w/Reflex to Titer POSITIVE (NEGATIVE)
--- NOTE | 2016-11-19 14:40 | P.PN ---
Subjective This is a 26-year-old male one of the [employer] with no prior medical history who developed to have an upper respiratory tract infection about a week ago with sinus pressure associated with postnasal drip, fever, chills, coughing, increased congestion, patient has been having these symptoms for quite some time, and he was working extra hard over the weekend carrying at least 75 pounds on his back where he felt extreme short of breath and somewhat heavy in his chest. Today in the morning when the patient woke up he developed to have a severe chest pressure at the center of the chest radiating to the back and to the neck associated with increased shortness of breath and the patient could not even put his clothes on he ended up coming to the emergency department at [facility] with his mom where he was seen in the ER and he had an EKG that showed normal sinus rhythm with J-point elevation suggestive of possible pericarditis however there was no evidence of any short or depressed RI and the patient troponin surprisingly came back positive at 6, patient then was taken immediately to the bobcat driver/labor with the Dr. Diggs and came back negative for coronary artery disease, echogram still pending at the time of dictation, the working diagnosis will be acute myocarditis. 11/19: Repeat chest x-ray shows slight worsening in the appearance of the patient 's right upper lobe infiltrate. Patient has been seen by Dr. Villalpando with recommendations for no anti-inflammatories and no steroid therapy. Colchicine added. Concern is for mycoplasma pneumonia resulting in myocarditis. Mycoplasma , TIFFANIE, adenovirus, coxsackie, enterovirus and Lyme testing all pending. echocardiogram reveals EF of 60-65% with mild pulmonic regurgitation, trace mitral regurgitation, trace tricuspid regurgitation. Temperature max 101.7. Objective - Vital Signs Vital signs: Vital Signs Temp 100 F H 11/19/16 05:30 Pulse 96 11/19/16 04:00 Resp 18 11/19/16 04:00 BP 111/55 11/19/16 04:00 Pulse Ox 96 11/19/16 04:00 Intake & Output 11/18/16 11/19/16 11/19/16 18:59 06:59 18:59 Intake Total 715 1125 Output Total 600 Balance 115 1125 Weight 75.5 kg 75.3 kg Intake: IV 475 525 Sodium Chloride 0.9% 1, 225 525 000 ml @ 75 mls/hr IV . [id number] [facility] Rx#:[id number] Oral 240 600 Output: Urine 600 Other: Voiding Method Toilet # Voids 3 - Exam General appearance: average body habitus, no acute distress - EENT Eyes: anicteric sclerae, EOMI, PERRLA, no ptosis, normal appearance ENT: hearing grossly normal, normal oropharynx, no thrush, no tonsillar exudates Ears: bilateral: normal - Neck Neck: no lymphadenopathy, normal ROM, no rigidity, no stridor Carotids: bilateral: upstroke normal Thyroid: bilateral: normal size - Respiratory Respiratory: bilateral: CTA, negative: diminished, dullness, rales, rhonchi, wheezing, prolonged expiration - Cardiovascular Rhythm: regular Heart sounds: normal: S1, S2 Abnormal Heart Sounds: no systolic murmur, no diastolic murmur, no rub, no S3 Gallop, no S4 Gallop, no click - Gastrointestinal General gastrointestinal: normal bowel sounds, soft, no splenomegaly, no tenderness, no umbilical hernia, no ventral hernia - Integumentary Integumentary: normal, normal turgor - Musculoskeletal Musculoskeletal: strength equal bilaterally - Psychiatric Psychiatric: A&O x's 3, appropriate affect, intact judgment & insight - Labs CBC & Chem 7: 11/19/16 05:56 11/19/16 05:56 Labs: Abnormal Lab Results - Last 24 Hours (Table) 11/18/16 11/18/16 11/19/16 Range/Units 14:28 20:45 05:56 Hct 38.7 L (39.0-53.0) % Plt Count 144 L (150-450) k/uL Sodium (137-145) mmol/L Glucose (74-99) mg/dL Total Creatine Kinase 640 H (55-170) U/L CK-MB (CK-2) 20.8 H* (0.0-2.4) ng/mL Troponin I 16.300 H* (0.000-0.034) ng/mL 11/19/16 Range/Units 05:56 Hct (39.0-53.0) % Plt Count (150-450) k/uL Sodium 135 L (137-145) mmol/L Glucose 107 H (74-99) mg/dL Total Creatine Kinase (55-170) U/L CK-MB (CK-2) (0.0-2.4) ng/mL Troponin I (0.000-0.034) ng/mL Assessment and Plan Plan: 1. Acute myocarditis the exact etiology is unclear, patient is post left heart catheterization that was normal, echocardiogram still pending at the time of dictation for evaluation of LV function, we will obtain anti-nuclear antibody, rheumatoid factor, coxsackie a and B virus antibodies IgG and IgM,Hepatitis panel,Lyme titers,along with Adenovirus,Enterovirus antibodies ,infectious disease consultation will be obtained. 2. Right upper lobe pneumonia.will check Mycoplasma antibodies IGM,IGG. 3. Tobacco use. Smoking cessation and counseling. 4. Recent upper respiratory tract infection. Appears to be better at this time. Continue supportive care. 5. Patient is full code. 6. We will continue to monitor. Discharge plan: Return home Impression and plan of care have been directed as dictated by the signing physician. Francheska Ramsay nurse practitioner acting as scribe for signing physician. Time with Patient: Greater than 30
--- NOTE | 2016-11-19 19:37 | P.PN ---
Subjective Principal diagnosis: Myocarditis Very pleasant 26-year-old male who is very physically fit due to his ongoing activity with the [employer]. He has been actively involved in duties as of late. Running 6 miles in a day. He's had some extensive training exercises. He had difficulty with lack of sleep several days in a row. He was working out into the rain. He was feeling quite fatigued. In the few days before coming to Hospital he was noticing that he was very exhausted when he would sit down he would fall asleep. He was also having some nasal congestion and some loose cough. Did not believe he had a high-grade fever. He was not having chills or rigors. He had not noticed any new rashes. The patient then developed evidence of significant chest pain. It was for a pressure-like in nature. It was to the left side of his chest. He had radiation down his arms. It radiated to his back. Because of this he presented to the emergency center. Workup showed evidence of a markedly abnormal EKG as well as an elevated troponin. The patient was seen by cardiology and has been taken to the cardiac catheterization lab with evidence of normal coronary arteries. Ejection fraction was approximately 50%. Echocardiogram reading is in process. The patient is directly status post cardiac catheterization and is feeling somewhat better. He did receive sedation. He relates his chest pain is improved. He has no other new complaints at this time. He denies any recent or antecedent sore throat. Travels of only been within [place]. 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 Family members are not ill. Is feeling a bit better today. Has had some fever through the afternoon. His cough is loosening in his sputum is thinner and easier to expectorate. He is denying significant chest pain or pressure. The symptoms of all resolved. Objective - Vital Signs Vital signs: Vital Signs Temp 102.2 F H 11/19/16 16:30 Pulse 97 11/19/16 16:30 Resp 18 11/19/16 16:30 BP 121/68 11/19/16 16:30 Pulse Ox 96 11/19/16 16:30 Intake & Output 11/19/16 11/19/16 11/20/16 06:59 18:59 06:59 Intake Total 1125 1200 Balance 1125 1200 Weight 75.3 kg Intake: IV 525 1200 Sodium Chloride 0.9% 1, 525 1200 000 ml @ 75 mls/hr IV . [id number] [facility] Rx#:[id number] Oral 600 Other: Voiding Method Toilet # Voids 3 3 - Exam Pleasant 26-year-old male who was of a tall muscular build. Is status post procedure and is in no acute distress. His chest pain is resolved at this time. HEENT: Anicteric conjunctiva are pink and moist nasal mucosa grossly intact without significant lesions, there is no thrush. Neck: The neck is supple without significant lymphadenopathy or thyromegaly. Lungs: Good bilateral air entry without significant crackles or wheezing. There is no significant bronchial sounds. There is no egophony or dullness. Heart: Regular rate and rhythm with an audible S1-S2, no S3 no S4. There is no significant murmur click or rub, PMI was nondisplaced. Abdomen: Positive bowel sounds soft and nontender without palpable masses or organomegaly. There was no guarding or rebound. Extremities: The upper extremities have excellent pulses they are symmetric, no significant petechiae or telangiectasia. No splinter hemorrhages were noted. The lower extremities are free from significant edema. The peripheral pulses were 2+ and symmetric. Neuro: Awake alert oriented to person place and time. There are no acute new gross focal sensory motor deficits. Skin there are no rashes petechiae telangiectasia or splinter hemorrhages. No lesions on the conjunctiva or oral cavity. No genital lesions were seen. No lymphadenopathy was noted cervical axillary or inguinal or epitrochlear this time - Labs CBC & Chem 7: 11/19/16 05:56 11/19/16 05:56 Labs: Abnormal Lab Results - Last 24 Hours (Table) 11/18/16 11/19/16 11/19/16 Range/Units 20:45 05:56 05:56 Hct 38.7 L (39.0-53.0) % Plt Count 144 L (150-450) k/uL Sodium 135 L (137-145) mmol/L Glucose 107 H (74-99) mg/dL Total Creatine Kinase 640 H (55-170) U/L CK-MB (CK-2) 20.8 H* (0.0-2.4) ng/mL Laboratory Results WBC 7.7 k/uL (3.8-10.6) 11/19/16 05:56 RBC 4.35 m/uL (4.30-5.90) 11/19/16 05:56 Hgb 13.5 gm/dL (13.0-17.5) 11/19/16 05:56 Hct 38.7 % (39.0-53.0) L 11/19/16 05:56 MCV 89.0 fL (80.0-100.0) 11/19/16 05:56 MCH 31.0 pg (25.0-35.0) 11/19/16 05:56 MCHC 34.9 g/dL (31.0-37.0) 11/19/16 05:56 RDW 12.8 % (11.5-15.5) 11/19/16 05:56 Plt Count 144 k/uL (150-450) L 11/19/16 05:56 Neutrophils % 69 % 11/19/16 05:56 Lymphocytes % 16 % 11/19/16 05:56 Monocytes % 11 % 11/19/16 05:56 Eosinophils % 1 % 11/19/16 05:56 Basophils % 1 % 11/19/16 05:56 Neutrophils # 5.3 k/uL (1.3-7.7) 11/19/16 05:56 Lymphocytes # 1.2 k/uL (1.0-4.8) 11/19/16 05:56 Monocytes # 0.9 k/uL (0-1.0) 11/19/16 05:56 Eosinophils # 0.1 k/uL (0-0.7) 11/19/16 05:56 Basophils # 0.1 k/uL (0-0.2) 11/19/16 05:56 ESR 19 mm/hr (0-15) H 11/18/16 11:50 Sodium 135 mmol/L (137-145) L 11/19/16 05:56 Potassium 3.9 mmol/L (3.5-5.1) 11/19/16 05:56 Chloride 101 mmol/L (98-107) 11/19/16 05:56 Carbon Dioxide 25 mmol/L (22-30) 11/19/16 05:56 Anion Gap 9 mmol/L 11/19/16 05:56 BUN 10 mg/dL (9-20) 11/19/16 05:56 Creatinine 0.90 mg/dL (0.66-1.25) 11/19/16 05:56 Est GFR (MDRD) Af Amer >60 (>60 ml/min/1.73 sqM) 11/19/16 05:56 Est GFR (MDRD) Non-Af >60 (>60 ml/min/1.73 sqM) 11/19/16 05:56 Glucose 107 mg/dL (74-99) H 11/19/16 05:56 Plasma Lactic Acid Beni 1.0 mmol/L (0.7-2.0) 11/18/16 11:50 Uric Acid 5.0 mg/dL (3.5-8.5) 11/18/16 11:50 Calcium 8.6 mg/dL (8.4-10.2) 11/19/16 05:56 Phosphorus 3.2 mg/dL (2.5-4.5) 11/19/16 05:56 Magnesium 1.7 mg/dL (1.6-2.3) 11/19/16 05:56 Total Bilirubin 1.0 mg/dL (0.2-1.3) 11/18/16 11:50 AST 47 U/L (17-59) 11/18/16 11:50 ALT 32 U/L (21-72) 11/18/16 11:50 Alkaline Phosphatase 77 U/L (38-126) 11/18/16 11:50 Lactate Dehydrogenase 620 U/L (313-618) H 11/18/16 11:50 Total Creatine Kinase 640 U/L (55-170) H 11/18/16 20:45 CK-MB (CK-2) 20.8 ng/mL (0.0-2.4) H* 11/18/16 20:45 CK-MB (CK-2) Rel Index 3.3 11/18/16 20:45 Troponin I 16.300 ng/mL (0.000-0.034) H* 11/18/16 14:28 C-Reactive Protein 137.0 mg/L (<10.0) H 11/18/16 11:50 NT-Pro-B Natriuret Pep 185 pg/mL 11/18/16 11:50 Total Protein 7.0 g/dL (6.3-8.2) 11/18/16 11:50 Albumin 4.0 g/dL (3.5-5.0) 11/18/16 11:50 Urine Opiates Screen Not Detected (NotDetected) 11/18/16 14:29 Ur Oxycodone Screen Not Detected (NotDetected) 11/18/16 14:29 Urine Methadone Screen Not Detected (NotDetected) 11/18/16 14:29 Ur Propoxyphene Screen Not Detected (NotDetected) 11/18/16 14:29 Ur Barbiturates Screen Not Detected (NotDetected) 11/18/16 14:29 U Tricyclic Antidepress Not Detected (NotDetected) 11/18/16 14:29 Ur Phencyclidine Scrn Not Detected (NotDetected) 11/18/16 14:29 Ur Amphetamines Screen Not Detected (NotDetected) 11/18/16 14:29 U Methamphetamines Scrn Not Detected (NotDetected) 11/18/16 14:29 U Benzodiazepines Scrn Not Detected (NotDetected) 11/18/16 14:29 Urine Cocaine Screen Not Detected (NotDetected) 11/18/16 14:29 U Marijuana (THC) Screen Not Detected (NotDetected) 11/18/16 14:29 Rheumatoid Factor <9 IU/mL (<12) 11/18/16 11:50 TIFFANIE Screen POSITIVE (NEGATIVE) H 11/18/16 11:50 Hepatitis A IgM Ab NEGATIVE 11/18/16 11:50 Hep Bs Antigen Negative 11/18/16 11:50 Hep B Core IgM Ab NEGATIVE 11/18/16 11:50 Hep C IgG Ab Negative (Negative) 11/18/16 11:50 Influenza Type A RNA Not Detected (Not Detectd) 11/18/16 12:10 Influenza Type B (PCR) Not Detected (Not Detectd) 11/18/16 12:10 Echocardiogram reveals evidence of ejection fraction of 60-65%. Assessment and Plan (1) Myocarditis Narrative/Plan: Very pleasant 26-year-old male presents to the hospital with significant chest pain. The patient is currently involved with the [employer]. Running 6 miles a day and is having some activities in [employer] with markedly reduction of his amount of sleep. He was feeling very fatigued. He then had the significant decline in status. He developed severe chest pain. Troponins were markedly elevated and is bending of the cardiac catheterization suite with no evidence of coronary disease. The patient has evidence of a myocarditis at this time. With this would limit anti-inflammatories and no steroid therapy at this time. He may have a mild pericarditis syndrome also occurring and colchicine can be added. Chest x-ray is abnormal with a right upper lobe infiltration. Concern would be to mycoplasma pneumonia and resultant myocarditis related to this. Although not common is been reported. There are multiple other causes of myocarditis included the viral pathogens and autoimmune disease. In these viral titers and serology test for autoimmune disease been requested. The patient is in the [employer] and has had HIV testing which was negative. Patient did have some fever today. This is improved this evening. The echocardiogram showed evidence of an excellent ejection fraction. No pericardial effusion was seen. Other than the fever is improving today. His appetites improving. He is denying discomforts in his chest. The chest pain and pressure has resolved. There is evidence of the right upper lobe infiltration and receiving antibiotic therapy. Only positive testing so far as the positive TIFFANIE. Titer will be requested. Virological studies and mycoplasma testing are still pending at this time. Continue azithromycin. Colchicine dose was doubled per cardiology. Monitor for diarrhea Status: Acute (2) Right upper lobe pneumonia Status: Acute
[2016-11-19] MEDS: METOPROLOL TARTRATE 25 MG TAB PO SCH (20:42)
[2016-11-20] MEDS: ACETAMINOPHEN TAB 325 MG TAB PO PRN ×3 (03:49→16:40)
[2016-11-20] MEDS: SODIUM CHLORIDE 0.9% 1,000 ML IV SCH ×3 (06:11→21:13)
[2016-11-20] MEDS: AZITHROMYCIN 500 MG TAB PO SCH (09:52)
[2016-11-20] MEDS: METOPROLOL TARTRATE 25 MG TAB PO SCH ×2 (09:52→21:13)
[2016-11-20] MEDS: COLCHICINE 0.6 MG TAB PO SCH ×2 (09:53→21:13)
[2016-11-20 10:07] LABS: Enterovirus PCR Not detected (Not detected)
--- NOTE | 2016-11-20 12:37 | P.PN ---
Subjective Principal diagnosis: Chest pain This is a pleasant 26-year-old gentleman who was seen in consultation yesterday by Dr. VC Diggs. Patient had been having symptoms of cough and congestion for one week, associated fever and chills. He presented to the hospital yesterday with symptoms of chest pain. His initial EKG showed evidence of J-point elevation suggestive of early repolarization with no definite DC segment depression noted. Patient's chest pain had subsided. A repeat EKG showed J- point elevation. Chest x-ray revealed right upper lobe infiltrate. His initial troponin came back at 6 and for this reason patient was taken to the cardiac catheterization lab by Dr. VC florian oh. Patient was not found to have any significant obstructive coronary artery disease. Troponin this morning up to 16.3. White blood cell count remains normal. C-reactive protein 137, drug screen negative. Hepatitis panel negative. Rheumatoid factor negative influenza A and B-. Temperature this morning of 100.4, up to 102.9 through the night. Blood pressure 115/60 with a heart rate in the 90s. Patient was seen and examined this morning, he complains of feeling mildly achy, weak. Denies any chest pains. Echocardiogram with Doppler study was performed which revealed an ejection fraction of 60-65%. No evidence of pericardial effusion. Patient is currently on colchicine 0.6 mg twice a day along with metoprolol tartrate 25 mg one tablet by mouth twice a day. Objective - Vital Signs Vital signs: Vital Signs Temp 98.8 F 11/20/16 08:05 Pulse 90 11/20/16 08:30 Resp 18 11/20/16 08:30 BP 115/66 11/20/16 08:05 Pulse Ox 95 11/20/16 08:05 Intake & Output 11/19/16 11/20/16 11/20/16 18:59 06:59 18:59 Intake Total 1200 525 120 Balance 1200 525 120 Weight 75.3 kg Intake: IV 1200 525 Sodium Chloride 0.9% 1, 1200 525 000 ml @ 75 mls/hr IV . [id number] [facility] Rx#:[id number] Oral 120 Other: Voiding Method Toilet # Voids 3 - Exam PHYSICAL EXAMINATION: HEENT: Head is atraumatic, normocephalic. Pupils equal, round. Neck is supple. There is no elevated jugular venous pressure. HEART EXAMINATION: S1 and S2 pericardial rub is heard. CHEST EXAMINATION: Lungs are clear to auscultation and precussion. No chest wall tenderness is noted on palpation or with deep breathing. ABDOMEN: Soft, nontender. Bowel sounds are heard. No organomegaly noted. EXTREMITIES: 2+ peripheral pulses with no evidence of peripheral edema and no calf tenderness noted. NEUROLOGIC patient is awake, alert and oriented -3. . - Labs CBC & Chem 7: 11/19/16 05:56 11/19/16 05:56 Labs: Abnormal Lab Results - Last 24 Hours (Table) 11/20/16 Range/Units 10:58 Troponin I 2.150 H* (0.000-0.034) ng/mL Assessment and Plan (1) Acute myopericarditis Status: Acute (2) Fever Status: Acute (3) Right upper lobe pneumonia Status: Acute Plan: Cardiology's perspective, to continue colchicine 0.6 mg one tablet by mouth twice a day along with Lopressor 25 mg daily. EKG performed this morning shows normal sinus rhythm with some improvement in J-point elevation. We will also check with Dr. Villalpando regarding reinitiating nonsteroidals. DNP note has been reviewed, I agree with a documented findings and plan of care. Patient was seen and examined.
--- NOTE | 2016-11-20 13:46 | P.PN ---
Subjective This is a 26-year-old male one of [employer] with no prior medical history who developed to have an upper respiratory tract infection about a week ago with sinus pressure associated with postnasal drip, fever, chills, coughing, increased congestion, patient has been having these symptoms for quite some time, and he was working extra hard over the weekend carrying at least 75 pounds on his back where he felt extreme short of breath and somewhat heavy in his chest. Today in the morning when the patient woke up he developed to have a severe chest pressure at the center of the chest radiating to the back and to the neck associated with increased shortness of breath and the patient could not even put his clothes on he ended up coming to the emergency department at [facility] with his mom where he was seen in the ER and he had an EKG that showed normal sinus rhythm with J-point elevation suggestive of possible pericarditis however there was no evidence of any short or depressed [place] and the patient troponin surprisingly came back positive at 6, patient then was taken immediately to the corn lab technician with the Dr. Diggs and came back negative for coronary artery disease, echogram still pending at the time of dictation, the working diagnosis will be acute myocarditis. 11/19: Repeat chest x-ray shows slight worsening in the appearance of the patient 's right upper lobe infiltrate. Patient has been seen by Dr. Villalpando with recommendations for no anti-inflammatories and no steroid therapy. Colchicine added. Concern is for mycoplasma pneumonia resulting in myocarditis. Mycoplasma , TIFFANIE, adenovirus, coxsackie, enterovirus and Lyme testing all pending. echocardiogram reveals EF of 60-65% with mild pulmonic regurgitation, trace mitral regurgitation, trace tricuspid regurgitation. Temperature max 101.7. 11/20: TIFFANIE positive, rheumatoid factor less than 9, Lyme titer normal. patient is having diarrhea. He also has a cough with sputum production. Temperature max is been 102.9. Sputum culture ordered. He is currently on colchicine 0.6 mg twice daily Objective - Vital Signs Vital signs: Vital Signs Temp 98.8 F 11/20/16 08:05 Pulse 90 11/20/16 08:05 Resp 18 11/20/16 08:05 BP 115/66 11/20/16 08:05 Pulse Ox 95 11/20/16 08:05 Intake & Output 03/11/20/16 11/20/16 18:59 06:59 18:59 Intake Total 1200 525 120 Balance 1200 525 120 Weight 75.3 kg Intake: IV 1200 525 Sodium Chloride 0.9% 1, 1200 525 000 ml @ 75 mls/hr IV . [id number] [facility] Rx#:[id number] Oral 120 Other: # Voids 3 - Exam General appearance: average body habitus, no acute distress - EENT Eyes: anicteric sclerae, EOMI, PERRLA, no ptosis, normal appearance ENT: hearing grossly normal, normal oropharynx, no thrush, no tonsillar exudates Ears: bilateral: normal - Neck Neck: no lymphadenopathy, normal ROM, no rigidity, no stridor Carotids: bilateral: upstroke normal Thyroid: bilateral: normal size - Respiratory Respiratory: bilateral: CTA, negative: diminished, dullness, rales, rhonchi, wheezing, prolonged expiration - Cardiovascular Rhythm: regular Heart sounds: normal: S1, S2 Abnormal Heart Sounds: no systolic murmur, no diastolic murmur, no rub, no S3 Gallop, no S4 Gallop, no click - Gastrointestinal General gastrointestinal: normal bowel sounds, soft, no splenomegaly, no tenderness, no umbilical hernia, no ventral hernia - Integumentary Integumentary: normal, normal turgor - Musculoskeletal Musculoskeletal: strength equal bilaterally - Psychiatric Psychiatric: A&O x's 3, appropriate affect, intact judgment & insight - Labs CBC & Chem 7: 11/19/16 05:56 11/19/16 05:56 Assessment and Plan Plan: 1. Acute myocarditis the exact etiology is unclear, patient is post left heart catheterization that was normal, echocardiogram still pending at the time of dictation for evaluation of LV function, we will obtain anti-nuclear antibody, rheumatoid factor, coxsackie a and B virus antibodies IgG and IgM,Hepatitis panel,Lyme titers,along with Adenovirus,Enterovirus antibodies ,infectious disease consultation will be obtained. colchicine. 2. Right upper lobe pneumonia.will check Mycoplasma antibodies IGM,IGG. 3. Tobacco use. Smoking cessation and counseling. 4. Recent upper respiratory tract infection. Appears to be better at this time. Continue supportive care. 5. Patient is full code. 6. We will continue to monitor. Discharge plan: Return home Impression and plan of care have been directed as dictated by the signing physician. Francheska Convery nurse practitioner acting as scribe for signing physician. Time with Patient: Greater than 30
[2016-11-20] MEDS ORDERED: DOXYCYCLINE 100 MG in SODIUM CHLORIDE 0.9% 100 ML IVPB SCH (21:30)
--- NOTE | 2016-11-20 21:42 | P.PN ---
Subjective Principal diagnosis: Myocarditis Very pleasant 26-year-old male who is very physically fit due to his ongoing activity with the [employer]. He has been actively involved in duties as of late. Running 6 miles in a day. He's had some extensive training exercises. He had difficulty with lack of sleep several days in a row. He was working out into the rain. He was feeling quite fatigued. In the few days before coming to Hospital he was noticing that he was very exhausted when he would sit down he would fall asleep. He was also having some nasal congestion and some loose cough. Did not believe he had a high-grade fever. He was not having chills or rigors. He had not noticed any new rashes. The patient then developed evidence of significant chest pain. It was for a pressure-like in nature. It was to the left side of his chest. He had radiation down his arms. It radiated to his back. Because of this he presented to the emergency center. Workup showed evidence of a markedly abnormal EKG as well as an elevated troponin. The patient was seen by cardiology and has been taken to the cardiac catheterization lab with evidence of normal coronary arteries. Ejection fraction was approximately 50%. Echocardiogram reading is in process. The patient is directly status post cardiac catheterization and is feeling somewhat better. He did receive sedation. He relates his chest pain is improved. He has no other new complaints at this time. He denies any recent or antecedent sore throat. Travels of only been within [place]. 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 Family members are not ill. Is feeling a bit better today. Has had some feveragain this afternoon. His cough is persistant.Sputum a bit thicker. He is denying significant chest pain or pressure. The symptoms of all resolved. Objective - Vital Signs Vital signs: Vital Signs Temp 102.4 F H 11/20/16 16:30 Pulse 89 11/20/16 16:30 Resp 18 11/20/16 16:30 BP 111/59 11/20/16 16:30 Pulse Ox 96 11/20/16 16:30 Intake & Output 11/20/16 11/20/16 11/21/16 06:59 18:59 06:59 Intake Total 525 3000 Balance 525 3000 Weight 75.3 kg Intake: IV 525 1200 Sodium Chloride 0.9% 1, 525 1200 000 ml @ 75 mls/hr IV . [id number] [facility] Rx#:[id number] Oral 1800 Other: Voiding Method Toilet - Exam Pleasant 26-year-old male who was of a tall muscular build. Is status post procedure and is in no acute distress. His chest pain is resolved at this time. HEENT: Anicteric conjunctiva are pink and moist nasal mucosa grossly intact without significant lesions, there is no thrush. Neck: The neck is supple without significant lymphadenopathy or thyromegaly. Lungs: Good bilateral air entry without significant crackles or wheezing. There is no significant bronchial sounds. There is no egophony or dullness. Heart: Regular rate and rhythm with an audible S1-S2, no S3 no S4. There is no significant murmur click or rub, PMI was nondisplaced. Abdomen: Positive bowel sounds soft and nontender without palpable masses or organomegaly. There was no guarding or rebound. Extremities: The upper extremities have excellent pulses they are symmetric, no significant petechiae or telangiectasia. No splinter hemorrhages were noted. The lower extremities are free from significant edema. The peripheral pulses were 2+ and symmetric. Neuro: Awake alert oriented to person place and time. There are no acute new gross focal sensory motor deficits. Skin there are no rashes petechiae telangiectasia or splinter hemorrhages. No lesions on the conjunctiva or oral cavity. No genital lesions were seen. No lymphadenopathy was noted cervical axillary or inguinal or epitrochlear this time - Labs CBC & Chem 7: 11/19/16 05:56 11/19/16 05:56 Labs: Abnormal Lab Results - Last 24 Hours (Table) 11/20/16 11/20/16 Range/Units 10:58 17:24 Troponin I 2.150 H* 1.650 H* (0.000-0.034) ng/mL Microbiology - Last 24 Hours (Table) 11/19/16 15:34 Blood Culture - Preliminary Blood No Growth after 24 hours 11/19/16 15:48 Blood Culture - Preliminary Blood No Growth after 24 hours Laboratory Results WBC 7.7 k/uL (3.8-10.6) 11/19/16 05:56 RBC 4.35 m/uL (4.30-5.90) 11/19/16 05:56 Hgb 13.5 gm/dL (13.0-17.5) 11/19/16 05:56 Hct 38.7 % (39.0-53.0) L 11/19/16 05:56 MCV 89.0 fL (80.0-100.0) 11/19/16 05:56 MCH 31.0 pg (25.0-35.0) 11/19/16 05:56 MCHC 34.9 g/dL (31.0-37.0) 11/19/16 05:56 RDW 12.8 % (11.5-15.5) 11/19/16 05:56 Plt Count 144 k/uL (150-450) L 11/19/16 05:56 Neutrophils % 69 % 11/19/16 05:56 Lymphocytes % 16 % 11/19/16 05:56 Monocytes % 11 % 11/19/16 05:56 Eosinophils % 1 % 11/19/16 05:56 Basophils % 1 % 11/19/16 05:56 Neutrophils # 5.3 k/uL (1.3-7.7) 11/19/16 05:56 Lymphocytes # 1.2 k/uL (1.0-4.8) 11/19/16 05:56 Monocytes # 0.9 k/uL (0-1.0) 11/19/16 05:56 Eosinophils # 0.1 k/uL (0-0.7) 11/19/16 05:56 Basophils # 0.1 k/uL (0-0.2) 11/19/16 05:56 ESR 19 mm/hr (0-15) H 11/18/16 11:50 Sodium 135 mmol/L (137-145) L 11/19/16 05:56 Potassium 3.9 mmol/L (3.5-5.1) 11/19/16 05:56 Chloride 101 mmol/L (98-107) 11/19/16 05:56 Carbon Dioxide 25 mmol/L (22-30) 11/19/16 05:56 Anion Gap 9 mmol/L 11/19/16 05:56 BUN 10 mg/dL (9-20) 11/19/16 05:56 Creatinine 0.90 mg/dL (0.66-1.25) 11/19/16 05:56 Est GFR (MDRD) Af Amer >60 (>60 ml/min/1.73 sqM) 11/19/16 05:56 Est GFR (MDRD) Non-Af >60 (>60 ml/min/1.73 sqM) 11/19/16 05:56 Glucose 107 mg/dL (74-99) H 11/19/16 05:56 Plasma Lactic Acid Beni 1.0 mmol/L (0.7-2.0) 11/18/16 11:50 Uric Acid 5.0 mg/dL (3.5-8.5) 11/18/16 11:50 Calcium 8.6 mg/dL (8.4-10.2) 11/19/16 05:56 Phosphorus 3.2 mg/dL (2.5-4.5) 11/19/16 05:56 Magnesium 1.7 mg/dL (1.6-2.3) 11/19/16 05:56 Total Bilirubin 1.0 mg/dL (0.2-1.3) 11/18/16 11:50 AST 47 U/L (17-59) 11/18/16 11:50 ALT 32 U/L (21-72) 11/18/16 11:50 Alkaline Phosphatase 77 U/L (38-126) 11/18/16 11:50 Lactate Dehydrogenase 620 U/L (313-618) H 11/18/16 11:50 Total Creatine Kinase 640 U/L (55-170) H 11/18/16 20:45 CK-MB (CK-2) 20.8 ng/mL (0.0-2.4) H* 11/18/16 20:45 CK-MB (CK-2) Rel Index 3.3 11/18/16 20:45 Troponin I 1.650 ng/mL (0.000-0.034) H* 11/20/16 17:24 C-Reactive Protein 137.0 mg/L (<10.0) H 11/18/16 11:50 NT-Pro-B Natriuret Pep 185 pg/mL 11/18/16 11:50 Total Protein 7.0 g/dL (6.3-8.2) 11/18/16 11:50 Albumin 4.0 g/dL (3.5-5.0) 11/18/16 11:50 Urine Opiates Screen Not Detected (NotDetected) 11/18/16 14:29 Ur Oxycodone Screen Not Detected (NotDetected) 11/18/16 14:29 Urine Methadone Screen Not Detected (NotDetected) 11/18/16 14:29 Ur Propoxyphene Screen Not Detected (NotDetected) 11/18/16 14:29 Ur Barbiturates Screen Not Detected (NotDetected) 11/18/16 14:29 U Tricyclic Antidepress Not Detected (NotDetected) 11/18/16 14:29 Ur Phencyclidine Scrn Not Detected (NotDetected) 11/18/16 14:29 Ur Amphetamines Screen Not Detected (NotDetected) 11/18/16 14:29 U Methamphetamines Scrn Not Detected (NotDetected) 11/18/16 14:29 U Benzodiazepines Scrn Not Detected (NotDetected) 11/18/16 14:29 Urine Cocaine Screen Not Detected (NotDetected) 11/18/16 14:29 U Marijuana (THC) Screen Not Detected (NotDetected) 11/18/16 14:29 Rheumatoid Factor <9 IU/mL (<12) 11/18/16 11:50 TIFFANIE Screen POSITIVE (NEGATIVE) H 11/18/16 11:50 TIFFANIE Titer Titer 1:80 11/18/16 11:50 TIFFANIE Pattern Homogenous 11/18/16 11:50 Lyme Disease IgG/IgM 0.02 (<0.90) 11/18/16 11:50 Enterovirus Source See Below 11/18/16 18:00 Enterovirus RNA RT-PCR Not detected (Not detected) 11/18/16 18:00 Hepatitis A IgM Ab NEGATIVE 11/18/16 11:50 Hep Bs Antigen Negative 11/18/16 11:50 Hep B Core IgM Ab NEGATIVE 11/18/16 11:50 Hep C IgG Ab Negative (Negative) 11/18/16 11:50 Influenza Type A RNA Not Detected (Not Detectd) 11/18/16 12:10 Influenza Type B (PCR) Not Detected (Not Detectd) 11/18/16 12:10 Microbiology 11/19/16 15:34 Blood Blood Culture - Preliminary No Growth after 24 hours 11/19/16 15:48 Blood Blood Culture - Preliminary No Growth after 24 hours Assessment and Plan (1) Myocarditis Narrative/Plan: Very pleasant 26-year-old male presents to the hospital with significant chest pain. The patient is currently involved with the [employer] maneu[employer]. Running 6 miles a day and is having some activities in [place] with markedly reduction of his amount of sleep. He was feeling very fatigued. He then had the significant decline in status. He developed severe chest pain. Troponins were markedly elevated and is bending of the cardiac catheterization suite with no evidence of coronary disease. The patient has evidence of a myocarditis at this time. With this would limit anti-inflammatories and no steroid therapy at this time. He may have a mild pericarditis syndrome also occurring and colchicine can be added. Chest x-ray is abnormal with a right upper lobe infiltration. Concern would be to mycoplasma pneumonia and resultant myocarditis related to this. Although not common is been reported. There are multiple other causes of myocarditis included the viral pathogens and autoimmune disease. In these viral titers and serology test for autoimmune disease been requested. The patient is in the [employer] and has had HIV testing which was negative. Patient did have some fever today. This is improved this evening. The echocardiogram showed evidence of an excellent ejection fraction. No pericardial effusion was seen. Other than fever is feeling better today. His appetites improving. He is denying discomforts in his chest. The chest pain and pressure has resolved. There is evidence of the right upper lobe infiltration and receiving antibiotic therapy. Only positive testing so far as the positive TIFFANIE. Titer is low and nonspecific. Virological studies and mycoplasma testing are still pending at this time. Pateint has developed some loose stool could be related to azithromycin, will change to doxycycline. Colchicine dose was doubled per cardiology. May cause the diarrhea. Status: Acute (2) Right upper lobe pneumonia Status: Acute
[2016-11-21] MEDS: ACETAMINOPHEN TAB 325 MG TAB PO PRN ×2 (03:29→14:13)
[2016-11-21 07:18] LABS: Mycoplasma IgG Antibody (EIA) 0.83 INDEX (<=0.90); Mycoplasma IgM Antibody 0.4 INDEX (<=0.90)
[2016-11-21] MEDS: COLCHICINE 0.6 MG TAB PO SCH ×2 (09:11→20:26)
[2016-11-21] MEDS: METOPROLOL TARTRATE 25 MG TAB PO SCH ×2 (09:11→20:26)
[2016-11-21] MEDS: SODIUM CHLORIDE 0.9% 1,000 ML IV SCH (10:50)
[2016-11-21] MEDS: DOXYCYCLINE 50 MG CAP PO SCH ×2 (11:49→20:26)
--- NOTE | 2016-11-21 13:35 | P.PN ---
Subjective Principal diagnosis: Chest pain This is a pleasant 26-year-old gentleman who presented to the hospital with chest discomfort, is currently being treated for myocarditis. He does have presence of pneumonia as well. Cardiac catheterization was performed during this admission which did not reveal any evidence of obstructive coronary artery disease. Patient continues to have occasional mild fevers. All the patient states he is feeling much better today. Blood pressure this morning 114 /64 with a heart rate in the 80s. Current temperature 98.6. We will start the patient on some Motrin today. Plan for possible discharge home in 24 hours if stable. Objective - Vital Signs Vital signs: Vital Signs Temp 98.6 F 11/21/16 11:39 Pulse 69 11/21/16 11:39 Resp 18 11/21/16 11:39 BP 114/64 11/21/16 11:39 Pulse Ox 98 11/21/16 11:39 Intake & Output 11/20/16 11/21/16 11/21/16 18:59 06:59 18:59 Intake Total 3000 480 Balance 3000 480 Weight 74.9 kg Intake: IV 1200 Sodium Chloride 0.9% 1, 1200 000 ml @ 75 mls/hr IV . [id number] [facility] Rx#:[id number] Oral 1800 480 Other: Voiding Method Toilet Toilet # Voids 3 - Exam PHYSICAL EXAMINATION: HEENT: Head is atraumatic, normocephalic. Pupils equal, round. Neck is supple. There is no elevated jugular venous pressure. HEART EXAMINATION: S1 and S2 pericardial rub is heard. CHEST EXAMINATION: Lungs are clear to auscultation and precussion. No chest wall tenderness is noted on palpation or with deep breathing. ABDOMEN: Soft, nontender. Bowel sounds are heard. No organomegaly noted. EXTREMITIES: 2+ peripheral pulses with no evidence of peripheral edema and no calf tenderness noted. NEUROLOGIC patient is awake, alert and oriented -3. . - Labs CBC & Chem 7: 11/19/16 05:56 11/19/16 05:56 Labs: Abnormal Lab Results - Last 24 Hours (Table) 11/20/16 11/20/16 Range/Units 17:24 23:17 Troponin I 1.650 H* 1.350 H* (0.000-0.034) ng/mL Microbiology - Last 24 Hours (Table) 11/19/16 15:34 Blood Culture - Preliminary Blood No Growth after 24 hours 11/19/16 15:48 Blood Culture - Preliminary Blood No Growth after 24 hours Assessment and Plan (1) Acute myopericarditis Status: Acute (2) Fever Status: Acute (3) Right upper lobe pneumonia Status: Acute Plan: Cardiology's perspective, to continue colchicine 0.6 mg one tablet by mouth twice a day along with Lopressor 25 mg daily. We will also add Motrin to his medication regime and continue that for 3 weeks. EKG performed this morning shows normal sinus rhythm with some improvement in J-point elevation. Plan on possible discharge home in 24 hours if stable. DNP note has been reviewed, I agree with a documented findings and plan of care. Patient was seen and examined.
[2016-11-21] MEDS: IBUPROFEN 600 MG TAB PO SCH ×2 (14:13→20:26)
--- NOTE | 2016-11-21 15:43 | P.PN ---
Subjective This is a 26-year-old male one of the [employer] with no prior medical history who developed to have an upper respiratory tract infection about a week ago with sinus pressure associated with postnasal drip, fever, chills, coughing, increased congestion, patient has been having these symptoms for quite some time, and he was working extra hard over the weekend carrying at least 75 pounds on his back where he felt extreme short of breath and somewhat heavy in his chest. Today in the morning when the patient woke up he developed to have a severe chest pressure at the center of the chest radiating to the back and to the neck associated with increased shortness of breath and the patient could not even put his clothes on he ended up coming to the emergency department at [facility] with his mom where he was seen in the ER and he had an EKG that showed normal sinus rhythm with J-point elevation suggestive of possible pericarditis however there was no evidence of any short or depressed OK and the patient troponin surprisingly came back positive at 6, patient then was taken immediately to the [facility] with the Dr. Diggs and came back negative for coronary artery disease, echogram still pending at the time of dictation, the working diagnosis will be acute myocarditis. 11/19: Repeat chest x-ray shows slight worsening in the appearance of the patient 's right upper lobe infiltrate. Patient has been seen by Dr. Villalpando with recommendations for no anti-inflammatories and no steroid therapy. Colchicine added. Concern is for mycoplasma pneumonia resulting in myocarditis. Mycoplasma , TIFFANIE, adenovirus, coxsackie, enterovirus and Lyme testing all pending. echocardiogram reveals EF of 60-65% with mild pulmonic regurgitation, trace mitral regurgitation, trace tricuspid regurgitation. Temperature max 101.7. 11/20: TIFFANIE positive, rheumatoid factor less than 9, Lyme titer normal. patient is having diarrhea. He also has a cough with sputum production. Temperature max is been 102.9. Sputum culture ordered. He is currently on colchicine 0.6 mg twice daily 11/20: temperature max has been 102.4 last afternoon. No diarrhea today. Dr. Villalpando's change his antibiotics to doxycycline. He is continued on colchicine and cardiology has added and Motrin. Anticipate possible discharge by tomorrow. Enterovirus and Lyme testing negative. Objective - Vital Signs Vital signs: Vital Signs Temp 98.2 F 11/21/16 08:07 Pulse 73 11/21/16 08:07 Resp 16 11/21/16 08:07 BP 109/55 11/21/16 08:07 Pulse Ox 94 L 11/21/16 08:07 Intake & Output 11/20/16 11/21/16 11/21/16 18:59 06:59 18:59 Intake Total 3000 240 Balance 3000 240 Weight 74.9 kg Intake: IV 1200 Sodium Chloride 0.9% 1, 1200 000 ml @ 75 mls/hr IV . [id number] [facility] Rx#:[id number] Oral 1800 240 Other: Voiding Method Toilet Toilet # Voids 3 - Exam General appearance: average body habitus, no acute distress - EENT Eyes: anicteric sclerae, EOMI, PERRLA, no ptosis, normal appearance ENT: hearing grossly normal, normal oropharynx, no thrush, no tonsillar exudates Ears: bilateral: normal - Neck Neck: no lymphadenopathy, normal ROM, no rigidity, no stridor Carotids: bilateral: upstroke normal Thyroid: bilateral: normal size - Respiratory Respiratory: bilateral: CTA, negative: diminished, dullness, rales, rhonchi, wheezing, prolonged expiration - Cardiovascular Rhythm: regular Heart sounds: normal: S1, S2 Abnormal Heart Sounds: no systolic murmur, no diastolic murmur, no rub, no S3 Gallop, no S4 Gallop, no click - Gastrointestinal General gastrointestinal: normal bowel sounds, soft, no splenomegaly, no tenderness, no umbilical hernia, no ventral hernia - Integumentary Integumentary: normal, normal turgor - Musculoskeletal Musculoskeletal: strength equal bilaterally - Psychiatric Psychiatric: A&O x's 3, appropriate affect, intact judgment & insight - Labs CBC & Chem 7: 11/19/16 05:56 11/19/16 05:56 Labs: Abnormal Lab Results - Last 24 Hours (Table) 11/20/16 11/20/16 11/20/16 Range/Units 10:58 17:24 23:17 Troponin I 2.150 H* 1.650 H* 1.350 H* (0.000-0.034) ng/mL Microbiology - Last 24 Hours (Table) 11/19/16 15:34 Blood Culture - Preliminary Blood No Growth after 24 hours 11/19/16 15:48 Blood Culture - Preliminary Blood No Growth after 24 hours Assessment and Plan Plan: 1. Acute myocarditis the exact etiology is unclear, patient is post left heart catheterization that was normal, echocardiogram still pending at the time of dictation for evaluation of LV function, coxsackie a and B virus antibodies IgG and IgM, infectious disease consultation will be obtained. colchicine, ibuprofen. 2. Right upper lobe pneumonia.will check Mycoplasma antibodies IGM,IGG. 3. Tobacco use. Smoking cessation and counseling. 4. Recent upper respiratory tract infection. Appears to be better at this time. Continue supportive care. 5. Patient is full code. 6. We will continue to monitor. Discharge plan: Return home tomorrow Impression and plan of care have been directed as dictated by the signing physician. Francheska Ramsay nurse practitioner acting as scribe for signing physician. Time with Patient: Greater than 30
--- NOTE | 2016-11-21 22:21 | P.PN ---
Subjective Principal diagnosis: Myocarditis Very pleasant 26-year-old male who is very physically fit due to his ongoing activity with the [employer]. He has been actively involved in duties as of late. Running 6 miles in a day. He's had some extensive training exercises. He had difficulty with lack of sleep several days in a row. He was working out into the rain. He was feeling quite fatigued. In the few days before coming to Hospital he was noticing that he was very exhausted when he would sit down he would fall asleep. He was also having some nasal congestion and some loose cough. Did not believe he had a high-grade fever. He was not having chills or rigors. He had not noticed any new rashes. The patient then developed evidence of significant chest pain. It was for a pressure-like in nature. It was to the left side of his chest. He had radiation down his arms. It radiated to his back. Because of this he presented to the emergency center. Workup showed evidence of a markedly abnormal EKG as well as an elevated troponin. The patient was seen by cardiology and has been taken to the cardiac catheterization lab with evidence of normal coronary arteries. Ejection fraction was approximately 50%. Echocardiogram reading is in process. The patient is directly status post cardiac catheterization and is feeling somewhat better. He did receive sedation. He relates his chest pain is improved. He has no other new complaints at this time. He denies any recent or antecedent sore throat. Travels of only been within [place]. 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 Family members are not ill. Is feeling better today. Fever has resolved. Feeling better overall. A few sweats are occurring but not as severe as they were. He is denying any chest pain at all. Shortness of breath is resolved. Is up and walking without much cough or sputum production. Denying chills or rigors. Objective - Vital Signs Vital signs: Vital Signs Temp 98.5 F 11/21/16 16:00 Pulse 64 11/21/16 16:00 Resp 16 11/21/16 16:00 BP 109/50 11/21/16 16:00 Pulse Ox 98 11/21/16 16:00 Intake & Output 11/21/16 11/21/16 11/22/16 06:59 18:59 06:59 Intake Total 1740 Balance 1740 Weight 74.9 kg 74.9 kg Intake: IV 300 Sodium Chloride 0.9% 1, 300 000 ml @ 75 mls/hr IV . [id number] [facility] Rx#:[id number] Oral 1440 Other: Voiding Method Toilet # Voids 3 2 - Exam Pleasant 26-year-old male who was of a tall muscular build. Is status post procedure and is in no acute distress. His chest pain is resolved at this time. HEENT: Anicteric conjunctiva are pink and moist nasal mucosa grossly intact without significant lesions, there is no thrush. Neck: The neck is supple without significant lymphadenopathy or thyromegaly. Lungs: Good bilateral air entry without significant crackles or wheezing. There is no significant bronchial sounds. There is no egophony or dullness. Heart: Regular rate and rhythm with an audible S1-S2, no S3 no S4. There is no significant murmur click or rub, PMI was nondisplaced. Abdomen: Positive bowel sounds soft and nontender without palpable masses or organomegaly. There was no guarding or rebound. Extremities: The upper extremities have excellent pulses they are symmetric, no significant petechiae or telangiectasia. No splinter hemorrhages were noted. The lower extremities are free from significant edema. The peripheral pulses were 2+ and symmetric. Neuro: Awake alert oriented to person place and time. There are no acute new gross focal sensory motor deficits. Skin there are no rashes petechiae telangiectasia or splinter hemorrhages. No lesions on the conjunctiva or oral cavity. No genital lesions were seen. No lymphadenopathy was noted cervical axillary or inguinal or epitrochlear this time - Labs CBC & Chem 7: 11/19/16 05:56 11/19/16 05:56 Labs: Abnormal Lab Results - Last 24 Hours (Table) 11/20/16 Range/Units 23:17 Troponin I 1.350 H* (0.000-0.034) ng/mL Microbiology - Last 24 Hours (Table) 11/19/16 15:34 Blood Culture - Preliminary Blood No Growth after 48 hours 11/19/16 15:48 Blood Culture - Preliminary Blood No Growth after 48 hours Laboratory Results WBC 7.7 k/uL (3.8-10.6) 11/19/16 05:56 RBC 4.35 m/uL (4.30-5.90) 11/19/16 05:56 Hgb 13.5 gm/dL (13.0-17.5) 11/19/16 05:56 Hct 38.7 % (39.0-53.0) L 11/19/16 05:56 MCV 89.0 fL (80.0-100.0) 11/19/16 05:56 MCH 31.0 pg (25.0-35.0) 11/19/16 05:56 MCHC 34.9 g/dL (31.0-37.0) 11/19/16 05:56 RDW 12.8 % (11.5-15.5) 11/19/16 05:56 Plt Count 144 k/uL (150-450) L 11/19/16 05:56 Neutrophils % 69 % 11/19/16 05:56 Lymphocytes % 16 % 11/19/16 05:56 Monocytes % 11 % 11/19/16 05:56 Eosinophils % 1 % 11/19/16 05:56 Basophils % 1 % 11/19/16 05:56 Neutrophils # 5.3 k/uL (1.3-7.7) 11/19/16 05:56 Lymphocytes # 1.2 k/uL (1.0-4.8) 11/19/16 05:56 Monocytes # 0.9 k/uL (0-1.0) 11/19/16 05:56 Eosinophils # 0.1 k/uL (0-0.7) 11/19/16 05:56 Basophils # 0.1 k/uL (0-0.2) 11/19/16 05:56 ESR 19 mm/hr (0-15) H 11/18/16 11:50 Sodium 135 mmol/L (137-145) L 11/19/16 05:56 Potassium 3.9 mmol/L (3.5-5.1) 11/19/16 05:56 Chloride 101 mmol/L (98-107) 11/19/16 05:56 Carbon Dioxide 25 mmol/L (22-30) 11/19/16 05:56 Anion Gap 9 mmol/L 11/19/16 05:56 BUN 10 mg/dL (9-20) 11/19/16 05:56 Creatinine 0.90 mg/dL (0.66-1.25) 11/19/16 05:56 Est GFR (MDRD) Af Amer >60 (>60 ml/min/1.73 sqM) 11/19/16 05:56 Est GFR (MDRD) Non-Af >60 (>60 ml/min/1.73 sqM) 11/19/16 05:56 Glucose 107 mg/dL (74-99) H 11/19/16 05:56 Plasma Lactic Acid Beni 1.0 mmol/L (0.7-2.0) 11/18/16 11:50 Uric Acid 5.0 mg/dL (3.5-8.5) 11/18/16 11:50 Calcium 8.6 mg/dL (8.4-10.2) 11/19/16 05:56 Phosphorus 3.2 mg/dL (2.5-4.5) 11/19/16 05:56 Magnesium 1.7 mg/dL (1.6-2.3) 11/19/16 05:56 Total Bilirubin 1.0 mg/dL (0.2-1.3) 11/18/16 11:50 AST 47 U/L (17-59) 11/18/16 11:50 ALT 32 U/L (21-72) 11/18/16 11:50 Alkaline Phosphatase 77 U/L (38-126) 11/18/16 11:50 Lactate Dehydrogenase 620 U/L (313-618) H 11/18/16 11:50 Total Creatine Kinase 640 U/L (55-170) H 11/18/16 20:45 CK-MB (CK-2) 20.8 ng/mL (0.0-2.4) H* 11/18/16 20:45 CK-MB (CK-2) Rel Index 3.3 11/18/16 20:45 Troponin I 1.350 ng/mL (0.000-0.034) H* 11/20/16 23:17 C-Reactive Protein 137.0 mg/L (<10.0) H 11/18/16 11:50 NT-Pro-B Natriuret Pep 185 pg/mL 11/18/16 11:50 Total Protein 7.0 g/dL (6.3-8.2) 11/18/16 11:50 Albumin 4.0 g/dL (3.5-5.0) 11/18/16 11:50 Urine Opiates Screen Not Detected (NotDetected) 11/18/16 14:29 Ur Oxycodone Screen Not Detected (NotDetected) 11/18/16 14:29 Urine Methadone Screen Not Detected (NotDetected) 11/18/16 14:29 Ur Propoxyphene Screen Not Detected (NotDetected) 11/18/16 14:29 Ur Barbiturates Screen Not Detected (NotDetected) 11/18/16 14:29 U Tricyclic Antidepress Not Detected (NotDetected) 11/18/16 14:29 Ur Phencyclidine Scrn Not Detected (NotDetected) 11/18/16 14:29 Ur Amphetamines Screen Not Detected (NotDetected) 11/18/16 14:29 U Methamphetamines Scrn Not Detected (NotDetected) 11/18/16 14:29 U Benzodiazepines Scrn Not Detected (NotDetected) 11/18/16 14:29 Urine Cocaine Screen Not Detected (NotDetected) 11/18/16 14:29 U Marijuana (THC) Screen Not Detected (NotDetected) 11/18/16 14:29 Rheumatoid Factor <9 IU/mL (<12) 11/18/16 11:50 TIFFANIE Screen POSITIVE (NEGATIVE) H 11/18/16 11:50 TIFFANIE Titer Titer 1:80 11/18/16 11:50 TIFFANIE Pattern Homogenous 11/18/16 11:50 Lyme Disease IgG/IgM 0.02 (<0.90) 11/18/16 11:50 Enterovirus Source See Below 11/18/16 18:00 Enterovirus RNA RT-PCR Not detected (Not detected) 11/18/16 18:00 Hepatitis A IgM Ab NEGATIVE 11/18/16 11:50 Hep Bs Antigen Negative 11/18/16 11:50 Hep B Core IgM Ab NEGATIVE 11/18/16 11:50 Hep C IgG Ab Negative (Negative) 11/18/16 11:50 Influenza Type A RNA Not Detected (Not Detectd) 11/18/16 12:10 Influenza Type B (PCR) Not Detected (Not Detectd) 11/18/16 12:10 Mycoplasma pneumon IgG 0.83 INDEX (<=0.90) 11/18/16 14:28 Mycoplasma pneumon IgM 0.40 INDEX (<=0.90) 11/18/16 14:28 Microbiology 11/19/16 15:34 Blood Blood Culture - Preliminary No Growth after 48 hours 11/19/16 15:48 Blood Blood Culture - Preliminary No Growth after 48 hours Assessment and Plan (1) Myocarditis Narrative/Plan: Very pleasant 26-year-old male presents to the hospital with significant chest pain. The patient is currently involved with the [employer]. Running 6 miles a day and is having some activities in [employer] with markedly reduction of his amount of sleep. He was feeling very fatigued. He then had the significant decline in status. He developed severe chest pain. Troponins were markedly elevated and is bending of the cardiac catheterization suite with no evidence of coronary disease. The patient has evidence of a myocarditis at this time. With this would limit anti-inflammatories and no steroid therapy at this time. He may have a mild pericarditis syndrome also occurring and colchicine can be added. Chest x-ray is abnormal with a right upper lobe infiltration. Concern would be to mycoplasma pneumonia and resultant myocarditis related to this. Although not common is been reported. There are multiple other causes of myocarditis included the viral pathogens and autoimmune disease. In these viral titers and serology test for autoimmune disease been requested. The patient is in the [employer] and has had HIV testing which was negative. Patient did have some fever today. This is improved this evening. The echocardiogram showed evidence of an excellent ejection fraction. No pericardial effusion was seen. Other than fever is feeling better today. His appetites improving. He is denying discomforts in his chest. The chest pain and pressure has resolved. There is evidence of the right upper lobe infiltration and receiving antibiotic therapy. Only positive testing so far as the positive TIFFANIE. Titer is low and nonspecific. Virological studies negative so far. The mycoplasma titers are negative he will need. paired serum in the future Pateint has developed some loose stool could be related to azithromycin, will change to doxycycline. did not tolerate IV doxycycline,changed to po, Markedly improved today. Colchicine dose was doubled per cardiology. May cause the diarrhea. As improves will likely disharge in AM if remains afebrile. Status: Acute (2) Right upper lobe pneumonia Status: Acute
[2016-11-22] MEDS: SODIUM CHLORIDE 0.9% 1,000 ML IV SCH (04:34)
[2016-11-22] MEDS: METOPROLOL TARTRATE 25 MG TAB PO SCH (08:23)
[2016-11-22] MEDS: DOXYCYCLINE 50 MG CAP PO SCH (08:23)
[2016-11-22] MEDS: COLCHICINE 0.6 MG TAB PO SCH (08:23)
[2016-11-22] MEDS: IBUPROFEN 600 MG TAB PO SCH (08:26)
[2016-11-22 08:33] VITALS: RESP 17
--- NOTE | 2016-11-22 11:10 | P.PN ---
Subjective Principal diagnosis: Chest pain This is a pleasant 26-year-old gentleman who presented to the hospital with chest discomfort, is currently being treated for myocarditis. He does have presence of pneumonia as well. Cardiac catheterization was performed during this admission which did not reveal any evidence of obstructive coronary artery disease. Afebrile through the night. He did have several episodes of diaphoresis or the night. All the patient states he is feeling much better today. The pressure this morning 114/60, heart rate in the 70s. Afebrile Objective - Vital Signs Vital signs: Vital Signs Temp 97.1 F L 11/22/16 08:00 Pulse 73 11/22/16 08:00 Resp 17 11/22/16 08:00 BP 114/59 11/22/16 08:00 Pulse Ox 100 11/22/16 08:00 Intake & Output 11/21/16 11/22/16 11/22/16 18:59 06:59 18:59 Intake Total 1740 675 Balance 1740 675 Weight 74.9 kg 74.6 kg Intake: IV 300 675 Sodium Chloride 0.9% 1, 300 675 000 ml @ 75 mls/hr IV . [id number] [facility] Rx#:[id number] Oral 1440 Other: Voiding Method Toilet # Voids 2 - Exam PHYSICAL EXAMINATION: HEENT: Head is atraumatic, normocephalic. Pupils equal, round. Neck is supple. There is no elevated jugular venous pressure. HEART EXAMINATION: S1 and S2 pericardial rub is heard. CHEST EXAMINATION: Lungs are clear to auscultation and precussion. No chest wall tenderness is noted on palpation or with deep breathing. ABDOMEN: Soft, nontender. Bowel sounds are heard. No organomegaly noted. EXTREMITIES: 2+ peripheral pulses with no evidence of peripheral edema and no calf tenderness noted. NEUROLOGIC patient is awake, alert and oriented -3. . - Labs CBC & Chem 7: 11/19/16 05:56 11/19/16 05:56 Labs: Microbiology - Last 24 Hours (Table) 11/21/16 11:00 Gram Stain - Preliminary Sputum 11/19/16 15:34 Blood Culture - Preliminary Blood No Growth after 48 hours 11/19/16 15:48 Blood Culture - Preliminary Blood No Growth after 48 hours Assessment and Plan (1) Acute myopericarditis Status: Acute (2) Fever Status: Acute (3) Right upper lobe pneumonia Status: Acute Plan: Cardiology's perspective, patient may be able to be discharged home today. Troponin this morning 1.3. Follow-up appointment will be made with Dr. Parry in the office early next week. We recommend to continue the patient on current dose of colchicine along with nonsteroidals for 3 weeks duration. DNP note has been reviewed, I agree with a documented findings and plan of care. Patient was seen and examined.
[2016-11-22 12:44] VITALS: BP 118/60; PULSE 70; TEMP 97
--- NOTE | 2016-11-22 13:50 | P.DS ---
Providers Date of admission: 11/18/16 14:17 Expected date of discharge: 11/22/16 Attending physician: Sae Wiggins Primary care physician: Cindi [facility] Course: This is a 26-year-old male one of the [employer] with no prior medical history who developed to have an upper respiratory tract infection about a week ago with sinus pressure associated with postnasal drip, fever, chills, coughing, increased congestion, patient has been having these symptoms for quite some time, and he was working extra hard over the weekend carrying at least 75 pounds on his back where he felt extreme short of breath and somewhat heavy in his chest. Today in the morning when the patient woke up he developed to have a severe chest pressure at the center of the chest radiating to the back and to the neck associated with increased shortness of breath and the patient could not even put his clothes on he ended up coming to the emergency department at [facility] with his mom where he was seen in the ER and he had an EKG that showed normal sinus rhythm with J-point elevation suggestive of possible pericarditis however there was no evidence of any short or depressed TX and the patient troponin surprisingly came back positive at 6, patient then was taken immediately to the labor relations director with the Dr. Diggs and came back negative for coronary artery disease, echogram still pending at the time of dictation, the working diagnosis will be acute myocarditis. 11/19: Repeat chest x-ray shows slight worsening in the appearance of the patient 's right upper lobe infiltrate. Patient has been seen by Dr. Villalpando with recommendations for no anti-inflammatories and no steroid therapy. Colchicine added. Concern is for mycoplasma pneumonia resulting in myocarditis. Mycoplasma , TIFFANIE, adenovirus, coxsackie, enterovirus and Lyme testing all pending. echocardiogram reveals EF of 60-65% with mild pulmonic regurgitation, trace mitral regurgitation, trace tricuspid regurgitation. Temperature max 101.7. 11/20: TIFFANIE positive, rheumatoid factor less than 9, Lyme titer normal. patient is having diarrhea. He also has a cough with sputum production. Temperature max is been 102.9. Sputum culture ordered. He is currently on colchicine 0.6 mg twice daily 11/20: temperature max has been 102.4 last afternoon. No diarrhea today. Dr. Villalpando's change his antibiotics to doxycycline. He is continued on colchicine and cardiology has added and Motrin. Anticipate possible discharge by tomorrow. Enterovirus and Lyme testing negative. 11/21: Patient has been afebrile for 24 hours. He has been up and ambulating the hallway without complaints of chest pain or shortness of breath. Patient will be discharged home today in stable condition. Discharge diagnoses: 1. Acute myocarditis 2. Right upper lobe pneumonia. 3. Tobacco use. Smoking cessation and counseling. 4. Recent upper respiratory tract infection. Discharge plan: Return home Impression and plan of care have been directed as dictated by the signing physician. Francheska Ramsay nurse practitioner acting as scribe for signing physician. CC: Dr. Al Patient Condition at Discharge: Good Plan - Discharge Summary New Discharge Prescriptions: Colchicine [Colcrys] 0.6 mg PO BID #60 tab Doxycycline [Vibramycin] 100 mg PO BID #14 cap Metoprolol Tartrate [Lopressor] 25 mg PO BID #60 tab Discharge Medication List Acetaminophen/Diphenhydramine [Tylenol PM 500-25mg] 2 tab PO HS PRN 11/18/16 [ History] Ibuprofen [Advil] 400 mg PO Q6HR PRN 11/18/16 [History] Loratadine [Claritin] 10 mg PO DAILY PRN 11/18/16 [History] Multivitamin [Men's Multi-Vitamin] 1 tab PO DAILY 11/18/16 [History] Vitamin C Chewable 1 tab PO DAILY 11/18/16 [History] guaiFENesin SYRUP 100MG/5ML [Robitussin] 400 mg PO BID PRN 11/18/16 [History] Colchicine [Colcrys] 0.6 mg PO BID #60 tab 11/22/16 [Rx] Doxycycline [Vibramycin] 100 mg PO BID #14 cap 11/22/16 [Rx] Metoprolol Tartrate [Lopressor] 25 mg PO BID #60 tab 11/22/16 [Rx] Follow up Appointment(s)/Referral(s): Cindi Al MD [Primary Care Provider] - 1 Week Casandra Granados MD [STAFF PHYSICIAN] - 11/30/16 11:00 am Patient Instructions/Handouts: 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
== END 2016-11-22 13:05 | disposition home or self-care (01) | DRG 286 ==
LOC: EC 10:48 → 6SEL 14:17
PROVIDERS: ADMIT Internal Medicine; ATTEND Internal Medicine
PROC: B2111ZZ Fluoroscopy of Multiple Coronary Arteries using Low Osmolar Contrast (ICD-10-PCS; 2016-11-18)
PROC: B2151ZZ Fluoroscopy of Left Heart using Low Osmolar Contrast (ICD-10-PCS; 2016-11-18)
PROC: 4A023N7 Measurement of Cardiac Sampling and Pressure, Left Heart, Percutaneous Approach (ICD-10-PCS; principal; 2016-11-18 14:48)
DX: I40.9 Acute myocarditis, unspecified (principal); J18.9 Pneumonia, unspecified organism; I37.1 Nonrheumatic pulmonary valve insufficiency; R53.83 Other fatigue; R94.31 Abnormal electrocardiogram [ECG] [EKG]; F17.290 Nicotine dependence, other tobacco product, uncomplicated; R74.8 Abnormal levels of other serum enzymes; R19.7 Diarrhea, unspecified; R76.0 Raised antibody titer; R09.81 Nasal congestion; Z79.1 Long term (current) use of non-steroidal anti-inflammatories (NSAID); Z79.899 Other long term (current) drug therapy; Z82.49 Family history of ischemic heart disease and other diseases of the circulatory system; Z71.6 Tobacco abuse counseling; Z86.19 Personal history of other infectious and parasitic diseases; Z87.09 Personal history of other diseases of the respiratory system; Z87.01 Personal history of pneumonia (recurrent); Z83.49 Family history of other endocrine, nutritional and metabolic diseases; Z72.820 Sleep deprivation
CPT/HCPCS: 36415; 71020; 80048; 80053; 80074; 80306; 82550; 82553; 83605; 83615; 83735; 83880; 84100; 84484; 84550; 85025; 85652; 86038; 86039; 86140; 86431; 86603; 86618; 86658; 86738; 87040; 87070; 87205; 87498; 87502; 93005; 93306; 93458; 96361; 96365; 99285

== ENCOUNTER → 2017-10-30 | Outpatient (CLI) | payer OTHER | END | disposition home or self-care (01) | LOC: MMGSC 16:56 | PROVIDERS: ATTEND Family Medicine | DX: L01.00 Impetigo, unspecified (principal) | CPT/HCPCS: 87070 ==

== ENCOUNTER 2021-10-28 10:58 | Emergency (ER) | payer OTHER ==
[2021-10-28 11:02] VITALS: BP 137/88; PULSE 78; RESP 18; TEMP 97.4
[2021-10-28] MEDS ORDERED: CYCLOBENZAPRINE 10 MG TAB PO STA (11:27)
[2021-10-28] MEDS ORDERED: KETOROLAC 15 MG/ML 1 ML VIAL IM STA (11:27)
--- NOTE | 2021-10-28 11:43 | XR ---
EXAMINATION TYPE: XR lumbosacral spine min 4V DATE OF EXAM: 10/28/2021 CLINICAL HISTORY: pain COMPARISON: NONE TECHNIQUE: Frontal, lateral, and oblique images of the lumbar spine are obtained. FINDINGS: There are 5 lumbar type vertebral bodies identified. The lumbar spine shows satisfactory alignment without evidence of acute fracture or dislocation. Vertebral body heights are within normal limits. Disc spaces are well preserved. The overlying soft tissue appears unremarkable. IMPRESSION: No acute fracture or dislocation is seen in the lumbar spine.ICD 10 NO FRACTURE, INITIAL EVALUATION
--- NOTE | 2021-10-28 12:30 | ED ---
Back Pain HPI - General Chief Complaint: Back Pain/Injury Stated Complaint: back pain Time Seen by Provider: 10/28/21 11:09 Source: patient Limitations: no limitations - History of Present Illness Initial Comments: Patient is a 31-year-old male who presents to the emergency department with chief complaint of lower back pain. 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 Patient has experienced this before without evaluation. 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 Later on in the day patient slid on ice and did not fall but while sliding on the ice he felt his back pop a third time. Patient reports that he has been unable to walk due to severe pain. The pain is refractory to Tylenol. Patient woke up this morning with continued pain. Pain is in the lower left back with shooting radiation to the left thigh. He denies numbness and tingling in the bilateral lower extremities and groin. He denies urinary/bowel incontinence and urinary retention. - Related Data Home Medications Medication Instructions Recorded Confirmed Acetaminophen/Diphenhydramine 2 tab PO HS PRN 11/18/16 11/18/16 [Tylenol PM 500-25mg] Ibuprofen [Advil] 400 mg PO Q6HR PRN 11/18/16 11/18/16 Loratadine [Claritin] 10 mg PO DAILY PRN 11/18/16 11/18/16 Multivitamin [Men's Multi-Vitamin] 1 tab PO DAILY 11/18/16 11/18/16 Vitamin C Chewable 1 tab PO DAILY 11/18/16 11/18/16 guaiFENesin SYRUP 100MG/5ML 400 mg PO BID PRN 11/18/16 11/18/16 [Robitussin] Previous Rx's Medication Instructions Recorded Colchicine [Colcrys] 0.6 mg PO BID #60 tab 11/22/16 Doxycycline [Vibramycin] 100 mg PO BID #14 cap 11/22/16 Metoprolol Tartrate [Lopressor] 25 mg PO BID #60 tab 11/22/16 Cyclobenzaprine [Flexeril] 10 mg PO HS PRN 7 Days #7 tab 10/28/21 HYDROcodone/APAP 5-325MG [[place] 5] 1 each PO Q6HR PRN 3 Days #12 tab 10/28/21 predniSONE 50 mg PO DAILY #5 tab 10/28/21 Allergies Allergy/AdvReac Type Severity Reaction Status Date / Time No Known Allergies Allergy Verified 10/28/21 10:59 Review of Systems ROS Statement: Those systems with pertinent positive or pertinent negative responses have been documented in the HPI. ROS Other: All systems not noted in ROS Statement are negative. Past Medical History Past Medical History: Pneumonia History of Any Multi-Drug Resistant Organisms: None Reported Additional Past Surgical History / Comment(s): wisdom teeth, lasix eye surgery Past Psychological History: No Psychological Hx Reported Smoking Status: Vaper Past Alcohol Use History: Occasional Past Drug Use History: None Reported - Past Family History Mother Family Medical History: Coronary Artery Disease (CAD) (Mother is 54-year-old has history of CAD as well as hypothyroidism.), Thyroid Disorder Father Family Medical History: Hyperlipidemia, Hypertension (Father is 66-year-old has history of hypertension hyperlipidemia.) Sister(s) Family Medical History: No Reported History (Patient has one stepsister no major medical problems.) General Exam Limitations: no limitations General appearance: alert, in no apparent distress Head exam: Present: atraumatic, normocephalic, normal inspection Eye exam: Present: normal appearance, PERRL, EOMI. Absent: scleral icterus, conjunctival injection, periorbital swelling Respiratory exam: Present: normal lung sounds bilaterally. Absent: respiratory distress, wheezes, rales, rhonchi, stridor Cardiovascular Exam: Present: regular rate, normal rhythm, normal heart sounds. Absent: systolic murmur, diastolic murmur, rubs, gallop, clicks GI/Abdominal exam: Present: soft, normal bowel sounds. Absent: distended, tenderness, guarding, rebound, rigid Extremities exam: Present: normal inspection Back exam: Present: normal inspection, full ROM, tenderness (Lower left in the lumbar region), paraspinal tenderness. Absent: vertebral tenderness Neurological exam: Present: alert, oriented X3, CN II-XII intact Psychiatric exam: Present: normal affect, normal mood Skin exam: Present: warm, dry, intact, normal color. Absent: rash Course Vital Signs 10/28/21 10/28/21 10:59 12:41 Temperature 97.4 F L 97.4 F L Pulse Rate 78 78 Respiratory 18 18 Rate Blood Pressure 137/88 137/88 O2 Sat by Pulse 100 100 Oximetry Medical Decision Making - Medical Decision Making This is a 31-year-old otherwise healthy male who presents with lower back pain sciatica. Thorough history and examination was performed. Patient does not have neurological symptoms. Lumbosacral x-ray reveals no acute fracture or dislocation. Patient given Flexeril and Toradol with minimal relief of pain. Patient trials walking down the hallway and is extremely uncomfortable. He will be discharged with travel specialist referral. He was prescribed Flexeril and prednisone. I also prescribed a short course of [place] for his severe pain until he is able to see the travel specialist. Return parameters discussed. He verbalizes understanding and is agreeable to plan. Dr. Watson is my attending. Disposition Clinical Impression: Back pain, Sciatic leg pain Disposition: HOME SELF-CARE Condition: Good Instructions (If sedation given, give patient instructions): Acute Low Back Pain (ED) Additional Instructions: Take medication as prescribed. You may take [place] as needed during the day and take Flexeril as needed at bedtime. Do not drink alcohol or operate heavy machinery/vehicles on Flexeril. Follow-up with travel specialist at earliest available appointment. Return to the emergency department if you experience new, concerning, or worsening symptoms. Prescriptions: Cyclobenzaprine [Flexeril] 10 mg PO HS PRN 7 Days #7 tab PRN Reason: Muscle Spasm HYDROcodone/APAP 5-325MG [[place] 5] 1 each PO Q6HR PRN 3 Days #12 tab PRN Reason: Pain predniSONE 50 mg PO DAILY #5 tab Is patient prescribed a controlled substance at d/c from ED?: Yes When asked, does pt state using other controlled substances?: No If prescribed controlled substance>3 days was MAPS reviewed?: Prescribed <3 Days If opioid is for acute pain is fill amount 7 days or less?: Yes If Rx opioid, was Start Talking consent form obtained?: Yes Referrals: Cindi Al MD [Primary Care Provider] - 1-2 days Prosper Natarajan PAC [PHYSICIAN FRONT END TECHNICIAN] - 1-2 days Time of Disposition: 12:29
== END 2021-10-28 12:41 | disposition home or self-care (01) ==
LOC: EC 10:58
DX: M54.42 Lumbago with sciatica, left side (principal); F17.290 Nicotine dependence, other tobacco product, uncomplicated
CPT/HCPCS: 99283; 96372; 72110; J1885